=== PATIENT | male | born 1965 | race Caucasian/White ===

== ENCOUNTER → 2023-08-18 | Outpatient (CLI) | payer MEDICARE, MEDICAID, SELFPAY ==
--- NOTE | 2023-08-18 13:51 | CT_ITS ---
STUDY: LOW DOSE CT LUNG CANCER SCREENING REASON FOR EXAM: Male, 58 years old. One pack per day smoker x53 years, current smoker RADIATION DOSAGE (If Supplied By Facility): CTDIvol = ( 2.39 ) mGy, DLP = ( 85.48 ) mGycm TECHNIQUE: No contrast was administered. Low dose technique was utilized (average mAS-38 and kVp 120). 1.25 mm axial source images with a slice interval of 1.25-mm were reconstructed in lung windows. 2.5 mm axial source images with a slice interval of 2.5-mm were reconstructed in lung windows. 5.0 mm axial source images with a slice interval of 5.0-mm were reconstructed in soft tissue windows. COMPARISON: None. FINDINGS: Lung windows show the lungs to be mildly hyperexpanded without significant emphysematous blebs noted. No organized infiltrate, effusion, or suspicious noncalcified mass or nodule. Limited soft tissue windows show normal-appearing thyroid gland. No suspicious adenopathy noted. Peripheral calcifications noted in the thoracic aorta without aneurysm. There are punctate coronary artery calcifications. Bony structures show mild degenerative change. Limited cuts through the upper abdomen do not show a suspicious abnormality. CT/Low Dose CT Lung Screening IMPRESSION: Lung-RADS category 2 - Continue annual screening with LDCT in 12 months. IMPORTANT NOTES FOR USE: ACR Lung-RADS Version 1.1 Assessment Categories Release Date: 2018 Category: Coded 0-4 bases on nodule(s) with highest degree of suspicion. Negative screen is defined as categories 1 and 2; a positive screen is defined as categories 3 and 4. Category 3 and 4A nodules that are unchanged on interval CT should be coded as category 2, and individuals returned to screening in 12 months. Category 4X: Category 3 or 4 nodules with additional imaging findings that increase the suspicion of lung cancer, such as spiculation, GGN that doubles in size in 1 year, enlarged lymph notes, etc. Category Modifiers: S (significant finding unrelated to lung cancer) Electronically Signed: Edy Moody MD at 14:35 EST ,
== END | disposition home or self-care (01) ==
LOC: CT 13:48
PROVIDERS: Referring Provider Nurse Practitioner Family; Visit Provider Nurse Practitioner Family
DX: Z12.2 Encounter for screening for malignant neoplasm of respiratory organs (principal); F17.210 Nicotine dependence, cigarettes, uncomplicated
CPT/HCPCS: 71271

== ENCOUNTER → 2024-09-13 | Outpatient (CLI) | payer MEDICARE, MEDICAID, SELFPAY ==
[2024-09-13 13:03] LABS: Absolute Lymphocyte Count 1.29 X10^3/uL (0.83-4.51); Absolute Neutrophil Count 2.3 X10^3/uL (2.0-7.7); Basophil# 0.02 X10^3/uL; Basophil% 0.5 % (0-1); Eosinophil# 0.05 X10^3/uL; Eosinophils% 1.2 % (0-5); Hematocrit 40.9 % (40-54); Hemoglobin 13.5 g/dL (13.0-16.5); Lymphocyte # 1.29 X10^3/ul (0.83-4.51); Lymphocyte % 31.7 % (19-41); Mean Corpuscular Hgb 30.8 pg (27.0-32.0); Mean Corpuscular Volume 93.4 fL (80-94); Mean Platelet Vol. 10.3 fl (6.2-12.0); Monocyte# 0.41 X10^3/uL; Monocyte% 10.1 % (0-10); NRBC Flagged by Analyzer 0 % (0-5); Neutrophil # 2.29 X10^3/uL (2.7-7.7); Neutrophil % 56.3 % (47-70); POSITIVE COUNT YES; Platelet Count 95 K/mm3 (150-450); RBC Distribution Width CV 12.6 % (11.6-14.6); RBC Distribution Width SD 43.2 fl (35.1-43.9); Red Blood Count 4.38 M/mm3 (4.6-6.2); White Blood Count 4.1 K/mm3 (4.4-11.0)
[2024-09-13 13:04] LABS: Differential Indicated SCAN CRITERIA MET
[2024-09-13 13:28] LABS: Platelet Estimate MOD DEC (ADEQ)
[2024-09-13 13:35] LABS: Hemoglobin A1c 5.6 % (<=5.6)
[2024-09-13 14:37] LABS: ALB/GLOB Ratio 1.9 RATIO (0.9-2.4); AST(SGOT) 14 U/L (<=37); Alanine Aminotransfer ALT/SGPT 10 U/L (<=46); Albumin, Serum 4.1 g/dL (3.4-4.8); Alkaline Phosphatase 104 U/L (40-129); Anion Gap 11 (5-15); BUN 16 mg/dL (4-19); BUN/Creat Ratio 12.3 RATIO (10-20); Calcium 9.3 mg/dL (7.6-11.0); Carbon Dioxide 25.6 mmol/L (22.0-29.0); Chloride 109 mmol/L (96-108); Cholesterol 91 mg/dL (<=200); Creatinine, Serum 1.3 mg/dL (0.8-1.3); EST Glomerular Filtration Rate 65 (>60); Globulin 2.1 g/dL (2.2-4.2); Glucose 81 mg/dL (70-99); High Density Lipoprotein 33 mg/dL; Low Density Lipoprotein Calc. 24 mg/dL; PSA,Total - Annual Screen 0.64 ng/mL (0.02-4.00); Potassium 4.1 mmol/L (3.3-5.1); Protein, Total 6.2 g/dL (5.9-8.4); Sodium Level 146 mmol/L (133-145); Thyroid Stim Hormone (TSH) 0.806 uIU/mL (0.300-4.200); Total Bilirubin 0.22 mg/dL (0.00-1.30); Triglycerides 174 mg/dL; Very Low Density Lipoprotein 35 mg/dL (5-40); Vitamin B12 693 pg/mL (180-914); Vitamin D,25 Hydroxy 47.4 ng/mL (30-100); cholesterol:hdl ratio screen 2.78
== END | disposition home or self-care (01) ==
LOC: VSLAB 09:25
PROVIDERS: PCP Nurse Practitioner Family; Visit Provider Nurse Practitioner Family
DX: Z00.00 Encounter for general adult medical examination without abnormal findings (principal); Z12.5 Encounter for screening for malignant neoplasm of prostate; E03.9 Hypothyroidism, unspecified; E78.5 Hyperlipidemia, unspecified; E53.8 Deficiency of other specified B group vitamins; E55.9 Vitamin D deficiency, unspecified; R73.9 Hyperglycemia, unspecified
CPT/HCPCS: 36415; 80053; 80061; 82306; 82607; 83036; 84153; 84439; 84443; 85025; G0103

== ENCOUNTER → 2024-12-22 | Outpatient (CLI) | payer MEDICARE, MEDICAID, SELFPAY ==
--- NOTE | 2024-12-22 13:37 | CT_ITS ---
PROCEDURE: LOW DOSE CT LUNG SCREENING 12/22/2024 REASON FOR EXAM: TOBACCO USE TECHNIQUE: Low Dose CT Lung screening without contrast. Coronal and Sagittal reconstruction series were provided. One or more dose reduction techniques were used (e.g., Automated exposure control, adjustment of the mA and/or kV according to patient size, use of iterative reconstruction technique). REFERENCE LINK: [facility] Lung-RADS RADIATION DOSE SUMMARY: CTDlvol: 2.4 mGy DLP: 93 mGycm COMPARISON: CT chest on 08/18/2023 FINDINGS: Lymph Nodes:No suspicious lymphadenopathy Heart and Vasculature:Normal heart size. Minimal coronary calcification. Mild aortic atherosclerosis. Lungs and Airways: Trace nonobstructing debris in the proximal airways. Punctate calcified granuloma in the right upper lobe. No suspicious pulmonary nodule. Pleura:No effusion Upper Abdomen:Unremarkable Bones:Degenerative changes of the thoracic spine. CT/Low Dose CT Lung Screening IMPRESSION: Lung-RADS Category: 2 BENIGN (BASED ON IMAGING FEATURES OR INDOLENT BEHAVIOR). RECOMMEND 12-MONTH SCREENING LDCT. Reading Location: [id number]
--- OUTSIDE RECORDS SUMMARY | 2024-12-22 18:47 | XMS RPT_ITS | CCD ---
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 Role Phone Lin Stewart Unavailable Unavailable Lin Stewart Unavailable Unavailable Radhika Yates Unavailable Unavailable Hari Marshall Primary Care Provider [phone] JE NI Attending Unavailable HARI MARSHALL Primary Care Unavailable JE NI Admitting Unavailable JE NI Referring Unavailable HARI MARSHALL Primary Care Unavailable Arden Pedro Unavailable Radhika Yates Unavailable Radhika Yates Primary Care Provider Radhika Yates MD Primary Care Provider Nemes[place] LEAD MILITARY ANALYST-CValentina Primary Care Provider [phone] [place] LEAD MILITARY ANALYST-CValentina Attending Provider Juventino Johnson Primary Care Provider [phone] POORNIMA PRATER Attending Unavailable POORNIMA PRATER Referring Unavailable JUVENTINO JOHNSON Primary Care Unavailable RADHIKA YATES Primary Care Unavailable JE RUDD Attending Unavailable Nemesio VSValentina Hussein Attending Unavailabl e Nemesio VSC, Valentina Primary Care Unavailabl e Nemesio VSCValentina Attending Unavailabl e Nemesio VSC, Valentina Referring Unavailabl e Nemesio VSC, Valentina Primary Care Unavailabl e Medications Current Medications Medication Drug Class(es) Dates Sig (Normalized) Sig (Original) [id number] 200 actuat albuterol 0.09 mg/actuat metered dose inhaler (6 sources) beta2-Adrenergic Agonist Start: 12-04-2020 take 2 puff(s) by inhalation every four hours albuterol 90 mcg/actuation inhaler Inhale 2 puffs every 4 hours if needed. 12/04/2020 Active Start: 12-04-2020 albuterol HFA (PROVENTIL HFA, VENTOLIN HFA) 90 mcg/actuation inhaler Inhale as instructed every 4 hours as needed. 0 12/04/2020 Active Start: 12-04-2020 take 2 puff(s) by in halation every four hours as needed albuterol 90 mcg/inh inhalation aerosol ; 2 puff(s) inhaled every 4 hours, As Needed -for shortness of breath Quantity: 1 Refills: 0 Ordered: 04-Dec-2020 Arden Pedro Start: 04-Dec-2020 Generic Substitution Allowed Comments: For inhalation only.It is very important that you take or use this exactly as directed. Do not skip doses or discontinue unless directed by your doctor.Obtain medical advice before taking any non-prescription drugs as some may affect the action of this medication.Shake well before use. Comment on above: For inhalation only. It is very important that you take or use this exactly as directed. Do not skip doses or discontinue unless directed by your doctor.Obtain medical advice before taking any non-prescription drugs as some may affect the action of this medication.Shake well before use. Inhale as instructed every 4 hours as needed. amoxicillin 875 mg / clavulanate 125 mg oral tablet (1 source) Penicillin-class Antibacterial Start: 03-03-20 End: 03-12-20 take 1 tablet by mouth twice daily at mealtime amoxicillin-clavula salvador 875 mg-125 mg oral tablet ; 1 tab(s) orally 2 times a day Quantity: 20 Refills: 0 Ordered: 02-Mar-2022 Arden Pedro Start: 02-Mar-2022 End: 11-Mar-2022 Generic Substitution Allowed Comments: Finish all this medication unless otherwise directed by prescriber.Take with food or milk. Comment on above: Finish all this medi cation unless otherwise directed by prescriber.Take with food or milk. benztropine mesylate 2 mg oral tablet (5 sources) Anticholinergic, Antihistamine Start: 10-17-19 take 0.5 tablet by mouth twice daily benztropine (Cogentin) 2 mg tablet Take 0.5 tablets (1 mg) by mouth 2 times a day. 10/17/2023 Active benztropine (COG ENTIN) 1 mg tablet Take by mouth q 12 HR. 0 Active take 1 tablet by mouth twice sylvie ly benztropine 1 mg oral tablet ; 1 tab(s) orally 2 times a day Quantity: 0 Refills: 0 Ordered: 14-Feb-2022 Iram Rajput Generic Substitution Allowed Comment on above: Take by mouth q 12 H R. calcium chloride 0.0014 meq/ml / potassium chloride 0.004 meq/ml / sodium chloride 0.103 meq/ml / sodium lactate 0.028 meq/ml injectable solution (1 source) Start: End: take 50 mL intravenously every hour 50 mL/hr, intravenous, Continuous, Starting on Wed10/31/24 at 1100, For 1 day cholecalciferol 0.05 mg oral tablet (4 sources) Vitamin D Start: End: take 1 tablet by mouth once daily cholecalciferol (Vitamin D-3) 50 MCG (2000 UT) tablet Take 1 tablet (2,000 Units) by mouth once daily. 08/19/2024 Active docusate sodium 100 mg oral capsule (6 sources) Start: take 1 capsule by mouth twice daily docusate sodium (Colace) 100 mg capsule Take 1 capsule (100 mg) by mouth 2 times a day. 08/19/2024 Active Docusate Sodium 250 mg capsule Take by mouth. 0 Active Comment on above: Take by mouth. haloperidol 2 mg oral tablet (9 sources) Typical Antipsychotic Start: take 1 tablet by mouth once daily haloperidol (Haldol) 2 mg tablet Take 1 tablet (2 mg) by mouth once daily. WITH 5 MG 10/28/2023 Active Start: 10-15-2023 haloperidol de canoate (Haldol Decanoate) 100 mg/mL injection Inject 1 mL (100 mg) into the muscle every 28 (twenty-eight) days. 10/15/2023 Active take 1 tablet by mabel th once daily haloperidol (Haldol) 5 mg tablet Take 1 tablet (5 mg) by mouth once daily. Active Comment on above: Take by mouth. levothyroxine sodium 0.15 mg oral tablet (5 sources) l-Thyroxine take 1 tablet by mouth in the morning levothyroxine (Synthroid, Levoxyl) 150 mcg tablet Take 1 tablet (150 mcg) by mouth early in the morning.. Active take 1 tablet by mouth once jose y levothyroxine 150 mcg (0.15 mg) oral tablet ; 1 tab(s) orally once a day Quantity: 0 Refills: 0 Ordered: 14-Feb-2022 Regulo Iram Generic Substitution Allowed Comment on above: Take by mouth. Multivitamin preparation (3 sources) take 1 tablet by mouth once daily Vitamin B-100 oral tablet ; 1 tab(s) orally once a day Quantity: 0 Refills: 0 Ordered: 29-Mar-2020 Feliciano Briseno Status: Other Generic Substitution Allowed take 1 tablet by mouth once jose y Vitamin B-100 oral tablet ; 1 tab(s) orally once a day Quantity: 0 Refills: 0 Ordered: 29-Mar-2020 Feliciano Briseno Generic Substitution Allowed OLANZapine 20 mg oral tablet (8 sources) Atypical Antipsychotic take 1 tablet by mouth once daily at bedtime OLANZapine (ZyPREXA) 20 mg tablet Take 1 tablet (20 mg) by mouth once daily at bedtime. Active take 1 tablet by mabel th once daily at bedtime OLANZapine ; 1 tab(s) orally once a day (at bedtime) Quantity: 0 Refills: 0 Ordered: 29-Mar-2020 Feliciano Briseno Status: Other Generic Substitution Allowed take 1 tablet by mabel th once daily at bedtime OLANZapine ; 1 tab(s) orally once a day (at bedtime) Quantity: 0 Refills: 0 Ordered: 29-Mar-2020 Feliciano Briseno Generic Substitution Allowed Comment on above: Take by mouth. microencapsulated potassium chloride 10 meq extended release oral tablet (2 sources) Start: take 1 tablet by mouth once daily potassium chloride CR 10 mEq ER tablet Take 1 tablet (10 mEq) by mouth once daily. 10/17/2023 Active 24 hr propranolol hydrochloride 80 mg extended release oral capsule (5 sources) beta-Adrenergic Derek take 1 capsule by mouth once daily propranolol LA (Inderal LA) 80 mg 24 hr capsule Take 1 capsule (80 mg) by mouth once daily. Active take 1 capsule by mo [facility] every twenty-four hours propranolol ER (INDERAL LA) 80 mg 24 hr capsule Take by mouth. 0 Active Comment on above: Take by mouth. rosuvastatin calcium 5 mg oral tablet (5 sources) HMG-CoA Reductase Inhibitor take 1 tablet by mouth once daily rosuvastatin (Crestor) 5 mg tablet Take 1 tablet (5 mg) by mouth once daily. Active Comment on above: Take by mouth. terbinafine hydrochloride 10 mg/ml topical cream (2 sources) Allylamine Antifungal Desenex Maximum 1% topical cream ; Apply topically to affected area 2 times a day Quantity: 0 Refills: 0 Ordered: 14-Feb-2022 Iram Rajput Generic Substitution Allowed 30 actuat umeclidinium 0.0625 mg/actuat / vilanterol 0.025 mg/actuat dry powder inhaler (2 sources) Anticholinergic, beta2-Adrenergic Agonist Start: 10-13-19 24 take 1 puff(s) by inhalation once daily Anoro Ellipta 62.5-25 mcg/actuation blister with device Inhale 1 puff once daily. 10/13/2023 Active vitamin b12 1 mg oral tablet (4 sources) Vitamin B12 take 1 tablet by mouth once daily cyanocobalamin (Vitamin B-12) 1,000 mcg tablet Take 1 tablet (1,000 mcg) by mouth once daily. Active Completed/Discontinued Medications Medication Drug Class(es) Dates Sig (Normalized) Sig (Original) 1 ml fentaNYL 0.05 mg/ml injection (1 source) Opioid Agonist Start: 10-31-2024 End: 10-31-2024 intravenous, As needed, Starting on Wed10/31/24 at 1138, Intraprocedure ibuprofen 600 mg oral tablet (3 sources) Nonsteroidal Anti-inflammatory Drug Start: 03-29-2020 End: 04-07-2020 take 1 tablet by mouth three times daily at mealtime IBU 600 mg oral tablet ; 1 tab(s) orally 3 times a day Quantity: 30 Refills: 0 Ordered: 29-Mar-2020 Cedrick Reece Start: 29-Mar-2020 End: 07-Apr-2020 Status: Other Generic Substitution Allowed Comments: Do not take this drug if you are .It is very important that you take or use this exactly as directed. Do not skip doses or discontinue unless directed by your doctor.May cause drowsiness or dizziness.Obtain medical advice before taking any non-prescription drugs as some may affect the action of this medication.Take with food or milk. Comment on above: Do not take this drug if you are pregnan t.It is very important that you take or use this exactly as directed. Do not skip doses or discontinue unless directed by your doctor.May cause drowsiness or dizziness.Obtain medical advice before taking any non-prescription drugs as some may affect the action of this medication.Take with food or milk. 2 ml midazolam 5 mg/ml injection (1 source) Benzodiazepine Start: 10-31-2024 End: 10-31-2024 intravenous, Administer over 5 Minutes, As needed, Starting on Wed10/31/24 at 1138, Intraprocedure predniSONE 20 mg oral tablet (3 sources) Start: 12-04-2020 End: 12-08-2020 take 2 tablets by mouth once daily at mealtime predniSONE 20 mg oral tablet ; 2 tab(s) orally once a day Quantity: 10 Refills: 0 Ordered: 04-Dec-2020 Arden Pedro Start: 04-Dec-2020 End: 08-Dec-2020 Status: Other Generic Substitution Allowed Comments: It is very important that you take or use this exactly as directed. Do not skip doses or discontinue unless directed by your doctor.Obtain medical advice before taking any non-prescription drugs as some may affect the action of this medication.Take with food or milk. Comment on above: It is very important that you take or us e this exactly as directed. Do not skip doses or discontinue unless directed by your doctor.Obtain medical advice before taking any non-prescription drugs as some may affect the action of this medication.Take with food or milk. tiotropium 0.018 mg inhalation powder (3 sources) Anticholinergic tiotropium (SPIRIVA) 18 mcg inhalation capsule Inhale as instructed. 0 Active take 1 capsule by inhalation onc e daily Spiriva HandiHaler 18 mcg inhalation capsule ; 1 cap(s) inhaled once a day Quantity: 0 Refills: 0 Ordered: 14-Feb-2022 Iram Rajput Generic Substitution Allowed Comment on above: Inhale as instructed . Vitamin B Complex (1 source) vitamin b comple x tab Take by mouth. 0 Active Comment on above: Take by mouth. Problems Problem Classification Problem Date Documented Da te Episodic/Chronic Anal and rectal conditions (2 sources) Perianal abscess; Translations: [Abscess of anal and rectal regions] 08-16-2022 Episodic Asthma (4 sources) Asthma; Translations: [Asthma, unspecified type, unspecified] 12-04-2020 Chronic Comment on above: ASTHMA Blindness and vision defects (3 sources) Presbyopia; Translations: [Presbyopia] Episodic Cataract (1 source) Nuclear senile cataract; Translations: [Age-related nuclear cataract, bilateral] Chronic Gastrointestinal hemorrhage (2 sources) Rectal hemorrhage; Translations: [Hemorrhage of rectum and anus] 03-02-2022 Episodic Joint disorders and dislocations; trauma-related (1 source) Closed traumatic dislocation of interphalangeal joint of finger; Translations: [Closed dislocation of interphalangeal joint of right little finger] Episodic Nonspecific chest pain (4 sources) Chest pain; Translations: [Chest pain, unspecified] 02-14-2022 Episodic Comment on above: CHEST PAIN Other eye disorders (1 source) Alternating exotropia; 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 Other gastrointestinal disorders (3 sources) Constipation; Translations: [Constipation, unspecified] 03-03-2022 Episodic Other gastrointestinal disorders (2 sources) Other constipation; Translations: [Other constipation] Onset: 09-02-2024 Episodic Other lower respiratory disease (1 source) Dyspnea at rest; Translations: [Shortness of breath] Onset: 12-04-2020 12-04-2020 Episodic Other screening for suspected conditions (not mental disorders or infectious disease) (3 sources) Patient encounter status; Translations: [Encounter for screening for malignant neoplasm of colon] Onset: 10-31-2024 10-31-2024 Episodic Substance-related disorders (1 source) Nicotine dependence, cigarettes, uncomplicated; Translations: [Nicotine dependence, cigarettes, uncomplicated] Onset: 11-20-2024 Chronic Unclassified (1 source) Shortness of breath at rest 12-04-2020 Unclassified (2 sources) RECTAL BLEED 03-02-2022 Comment on above: RECTAL BLEED Unclassified (1 source) Patient encounter status 10-31-2024 Results Test Name Value Interpretation Reference Range Facility COLONOSCOPYon 10-31-2024 Colonoscopy Table formatting fro m the original result was not included. Impression 7 mm She Isp polyp in the mid rectum; performed hot snare removal Findings 7 mm sessile She Isp polyp in the mid rectum; no bleeding was observed; performed hot snare with complete en bloc removal and retrieved specimen Recommendation Follow up with PCP Repeat colonoscopy in 5 years, due: 10/30/2029 Indication Colon cancer screening Staff Staff Role No Staff Documented Medications midazolam PF (Versed) injection 2.5 mg fentaNYL PF (Sublimaze) injection 25 mcg (Totals for administrations occurring from 1133 to 1158 on 10/31/24) Preprocedure A history and physical has been performed, and patient medication allergies have been reviewed. The patient's tolerance of previous anesthesia has been reviewed. The risks and benefits of the procedure and the sedation options and risks were discussed with the patient and CareGiver. All questions were answered and informed consent obtained. Details of the Procedure The patient underwent moderate sedation, which was administered by the procedural nurse. The patient's blood pressure, ECG, ETCO2, heart rate, level of consciousness, oxygen and respirations were monitored throughout the procedure. A digital rectal exam was performed. The scope was introduced through the anus and advanced to the terminal ileum. Retroflexion was performed in the rectum. The quality of bowel preparation was evaluated using the Jenkins Bowel Preparation Scale with scores of: right colon = 2, transverse colon = 2, left colon = 2. The total BBPS score was 6. Bowel prep was adequate. The patient experienced no blood loss. The procedure was not difficult. The patient tolerated the procedure well. There were no apparent adverse events. Events Procedure Events Event Event Time ENDO SCOPE IN TIME 10/31/2024 11:41 AM ENDO CECUM REACHED 10/31/2024 11:48 AM ENDO SCOPE OUT TIME 10/31/2024 11:56 AM Specimens ID Type Source Tests Collected by Time 1 : RECTAL POLYP Tissue RECTUM POLYPECTOMY SURGICAL PATHOLOGY EXAM Julio Reyes RN 10/31/2024 1154 Procedure Location [facility] [address] [place] [phone] Referring Provider Poornima Prater DO Procedure Provider Poornima Prater DO Table formatting from the original result was not included. Impression 7 mm She Isp polyp in the mid rectum; performed hot snare removal Findings 7 mm sessile She Isp polyp in the mid rectum; no bleeding was observed; performed hot snare with complete en bloc removal and retrieved specimen Recommendation Follow up with PCP Repeat colonoscopy in 5 years, due: 10/30/2029 Indication Colon cancer screening Staff Staff Role No Staff Documented Medications midazolam PF (Versed) injection 2.5 mg fentaNYL PF (Sublimaze) injection 25 mcg (Totals for administrations occurring from 1133 to 1158 on 10/31/24) Preprocedure A history and physical has been performed, and patient medication allergies have been reviewed. The patient's tolerance of previous anesthesia has been reviewed. The risks and benefits of the procedure and the sedation options and risks were discussed with the patient and CareGiver . All questions were answered and informed consent obtained. Details of the Procedure The patient underwent moderate sedation, which was administered by the procedural nurse. The patient's blood pressure, ECG, ETCO2, heart rate, level of consciousness, oxygen and respirations were monitored throughout the procedure. A digital rectal exam was performed. The scope was introduced through the anus and advanced to the terminal ileum. Retroflexion was performed in the rectum. The quality of bowel preparation was evaluated using the Jenkins Bowel Preparation Scale with scores of: right colon = 2, transverse colon = 2, left colon = 2. The total BBPS score was 6. Bowel prep was adequate. The patient experienced no blood loss. The procedure was not difficult. The patient tolerated the procedure well. There were no apparent adverse events. Events Procedure Events Event Event Time ENDO SCOPE IN TIME 10/31/2024 11:41 AM ENDO CECUM REACHED 10/31/2024 11:48 AM ENDO SCOPE OUT TIME 10/31/2024 11:56 AM Specimens ID Type Source Tests Collected by Time 1 : RECTAL POLYP Tissue RECTUM POLYPECTOMY SURGICAL PATHOLOGY EXAM Julio Reyes RN 10/31/2024 1154 Procedure Location [facility] [address] [place] [phone] Referring Provider Poornima Prater DO Procedure Provider Poornima Prater DO [facility] Comment on above: Order Comment: October 31 Colonoscopy studyon 11-01-19 Addendum by Poornima Prater DO on 10/31/2024 12:12 PM EDT Table formatting from the original result was not included. Impression 7 mm She Isp polyp in the mid rectum; performed hot snare removal Findings 7 mm sessile She Isp polyp in the mid rectum; no bleeding was observed; performed hot snare with complete en bloc removal and retrieved specimen Recommendation Follow up with PCP Repeat colonoscopy in 5 years, due: 10/30/2029 Indication Colon cancer screening Staff Staff Role No Staff Documented Medications midazolam PF (Versed) injection 2.5 mg fentaNYL PF (Sublimaze) injection 25 mcg (Totals for administrations occurring from 1133 to 1158 on 10/31/24) Preprocedure A history and physical has been performed, and patient medication allergies have been reviewed. The patient's tolerance of previous anesthesia has been reviewed. The risks and benefits of the procedure and the sedation options and risks were discussed with the patient and CareGiver. All questions were answered and informed consent obtained. Details of the Procedure The patient underwent moderate sedation, which was administered by the procedural nurse. The patient's blood pressure, ECG, ETCO2, heart rate, level of consciousness, oxygen and respirations were monitored throughout the procedure. A digital rectal exam was performed. The scope was introduced through the anus and advanced to the terminal ileum. Retroflexion was performed in the rectum. The quality of bowel preparation was evaluated using the Jenkins Bowel Preparation Scale with scores of: right colon = 2, transverse colon = 2, left colon = 2. The total BBPS score was 6. Bowel prep was adequate. The patient experienced no blood loss. The procedure was not difficult. The patient tolerated the procedure well. There were no apparent adverse events. Events Procedure Events Event Event Time ENDO SCOPE IN TIME 10/31/2024 11:41 AM ENDO CECUM REACHED 10/31/2024 11:48 AM ENDO SCOPE OUT TIME 10/31/2024 11:56 AM Specimens ID Type Source Tests Collected by Time 1 : RECTAL POLYP Tissue RECTUM POLYPECTOMY SURGICAL PATHOLOGY EXAM Julio Reyes RN 10/31/2024 1154 Procedure Location [facility] [address] [place] [phone] Referring Provider Poornima Prater DO Procedure Provider Poornima Prater DO [facility] Work Phone: [facility] Work Phone: Radiology Study observation (narrative) [facility] Work Phone: Surgical pathology studyon 0 10-31-2024 Surgical pathology study Pathology report.total SEE COMMENT Surgical Pathology Case: [id number] Authorizing Provider: Poornima Prater DO Collected: 10/31/2024 1154 Ordering Location: [facility] Received: 10/31/2024 1527 Center [place] Pathologist: Mingo Rocha MD Specimen: RECTUM POLYPECTOMY, RECTAL POLYP Path report.final diagnosis SEE COMMENT A. POLYP (RECTUM), EXCISIONAL BIOPSY: - HYPERPLASTIC POLYP. at 0907 EDT Laboratory comment By the signature on this report, the individual or group listed as making the Final Interpretation/Diagnosis certifies that they have reviewed this case. Path report.relevant Hx Z12.11 - Colon cancer screening [ICD-10-CM] Path report.gross observation SEE COMMENT A: Received in formalin, labeled with the patient's name and hospital number and rectal polyp, is one fragment of marquis, soft tissue measuring 0.6 x 0.5 x 0.3 cm. The specimen is submitted in toto in one cassette. BMG Path report.microscopic observation Microscopic slides examined. Normal [facility] Absolute neutrophil countOrd ered By: [facility] Valentinaanton Herr on 09-13-2024 Neutrophils (Bld) [#/Vol] 2.3 10*3/uL 2.0-7.7 [facility] BUN/creatinine ratioOrdered By: [facility] on 09-13-2024 Urea nitrogen/Creatinine [Mass ratio] 12.3 mg/mg 10-20 [facility] Basophil percentageOrdered B y: [facility] Nem[place]io on 09-13-2024 Basophils/100 WBC (Bld) 0.5 % 0-1 [facility] Bilirubin, totalOrdered By: [facility] Nemesio on 09-13-2024 Bilirubin [Mass/Vol] 0.22 mg/dL 0.00-1.30 [facility] CBC W/Diff, Automatedon 08-20 PLT EST MOD DEC Normal ADEQ [facility] Comment on above: Performed By: #### L 501.9985, L501.9520, L506.0400, L501.9910, L503.0106, L500.4100, L100.0100, L500.4050, L506.1001 #### [facility] [address] [place], [place], [id number] Calculated very low density lipoprotein (VLDL) cholesterol measurementOrdered By: [facility] Valentina Nemesio on 09-13-2024 VLDL Cholesterol 35 mg/dL 5-40 [facility] Carbon dioxide measurementOr dered By: [facility] Valentina Nemesio on 09-13-2024 CO2 [Moles/Vol] 25.6 mmol/L 22.0-29.0 [facility] Chloride measurementOrdered By: [facility] Valentina Nemesio on 09-13-2024 Chloride [Moles/Vol] 109 mmol/L High 96-108 [facility] Comprehensive Metabolic Prof ilon 09-13-2024 Albumin [Mass/Vol] 4.1 g/dL Normal 3.4-4.8 [facility] Comment on above: Performed By: #### L 501.9985, L501.9520, L506.0400, L501.9910, L503.0106, L500.4100, L100.0100, L500.4050, L506.1001 #### [facility] [address] [place], [place], [id number] Albumin/Globulin [Mass ratio] 1.9 {ratio} Normal 0.9-2.4 [facility] Comment on above: Performed By: #### L 501.9985, L501.9520, L506.0400, L501.9910, L503.0106, L500.4100, L100.0100, L500.4050, L506.1001 #### [facility] [address] [place], [address] ALK PHOS 104 U/L Normal 40-129 [facility] Comment on above: Performed By: #### L 501.9985, L501.9520, L506.0400, L501.9910, L503.0106, L500.4100, L100.0100, L500.4050, L506.1001 #### [facility] [address] [place], [address] ALT [Catalytic activity/Vol] 10 U/L Normal <=46 [facility] Comment on above: Performed By: #### L 501.9985, L501.9520, L506.0400, L501.9910, L503.0106, L500.4100, L100.0100, L500.4050, L506.1001 #### [facility] [address] [place], [place], [id number] (812) Anion gap [Moles/Vol] 11 mmol/L Normal 5-15 [facility] Comment on above: Performed By: #### L 501.9985, L501.9520, L506.0400, L501.9910, L503.0106, L500.4100, L100.0100, L500.4050, L506.1001 #### [facility] [address] [place], [place], [phone] (543) AST [Catalytic activity/Vol] 14 U/L Normal <=37 [facility] Comment on above: Performed By: #### L 501.9985, L501.9520, L506.0400, L501.9910, L503.0106, L500.4100, L100.0100, L500.4050, L506.1001 #### [facility] [address] [place], [place], [id number] Bilirubin [Mass/Vol] 0.22 mg/dL Normal 0.00-1.30 [facility] Comment on above: Performed By: #### L 501.9985, L501.9520, L506.0400, L501.9910, L503.0106, L500.4100, L100.0100, L500.4050, L506.1001 #### [facility] [address] [place], [place], [id number] (649) BUN/CRE 12.3 RATIO Normal 10-20 [facility] Comment on above: Performed By: #### L 501.9985, L501.9520, L506.0400, L501.9910, L503.0106, L500.4100, L100.0100, L500.4050, L506.1001 #### [facility] [address] [place], [address] Calcium [Mass/Vol] 9.3 mg/dL Normal 7.6-11.0 [facility] Comment on above: Performed By: #### L 501.9985, L501.9520, L506.0400, L501.9910, L503.0106, L500.4100, L100.0100, L500.4050, L506.1001 #### [facility] [address] [place], [address] Chloride [Moles/Vol] 109 mmol/L High 96-108 [facility] Comment on above: Performed By: #### L 501.9985, L501.9520, L506.0400, L501.9910, L503.0106, L500.4100, L100.0100, L500.4050, L506.1001 #### [facility] [address] [place], [address] CO2 [Moles/Vol] 25.6 mmol/L Normal 22.0-29.0 [facility] Comment on above: Performed By: #### L 501.9985, L501.9520, L506.0400, L501.9910, L503.0106, L500.4100, L100.0100, L500.4050, L506.1001 #### [facility] [address] [place], [address] Creatinine [Mass/Vol] 1.3 mg/dL Normal 0.8-1.3 [facility] Comment on above: Performed By: #### L 501.9985, L501.9520, L506.0400, L501.9910, L503.0106, L500.4100, L100.0100, L500.4050, L506.1001 #### [facility] [address] [place], [address] GFR/1.73 sq M.predicted among non-blacks MDRD (S/P/Bld) [Vol rate/Area] 65 mL/min/{1.73_m2} Normal >60 [facility] Comment on above: Result Comment: mL/m in/1.73m2 CKD-EPI Creatinine Equation (2020) Performed By: #### L 501.9985, L501.9520, L506.0400, L501.9910, L503.0106, L500.4100, L100.0100, L500.4050, L506.1001 #### [facility] [address] [place], [address] Globulin (S) [Mass/Vol] 2.1 g/dL Low 2.2-4.2 [facility] Comment on above: Performed By: #### L 501.9985, L501.9520, L506.0400, L501.9910, L503.0106, L500.4100, L100.0100, L500.4050, L506.1001 #### [facility] [address] [place], [address] Glucose [Mass/Vol] 81 mg/dL Normal 70-99 [facility] Comment on above: Performed By: #### L 501.9985, L501.9520, L506.0400, L501.9910, L503.0106, L500.4100, L100.0100, L500.4050, L506.1001 #### [facility] [address] [place], [address] Potassium [Moles/Vol] 4.1 mmol/L Normal 3.3-5.1 [facility] Comment on above: Performed By: #### L 501.9985, L501.9520, L506.0400, L501.9910, L503.0106, L500.4100, L100.0100, L500.4050, L506.1001 #### [facility] [address] [place], [address] Sodium [Moles/Vol] 146 mmol/L High 133-145 [facility] Comment on above: Performed By: #### L 501.9985, L501.9520, L506.0400, L501.9910, L503.0106, L500.4100, L100.0100, L500.4050, L506.1001 #### [facility] [address] [place], [address] T PROT 6.2 g/dL Normal 5.9-8.4 [facility] Comment on above: Performed By: #### L 501.9985, L501.9520, L506.0400, L501.9910, L503.0106, L500.4100, L100.0100, L500.4050, L506.1001 #### [facility] [address] [place], [address] Urea nitrogen [Mass/Vol] 16 mg/dL Normal 4-19 [facility] Comment on above: Performed By: #### L 501.9985, L501.9520, L506.0400, L501.9910, L503.0106, L500.4100, L100.0100, L500.4050, L506.1001 #### [facility] [address] [place], [address] Eosinophil percentageOrdered By: [facility] Valentina Herr on 09-13-2024 Eosinophils/100 WBC (Bld) 1.2 % 0-5 [facility] Erythrocyte distribution wid th ratioOrdered By: [facility] Valentina Herr on 09-13-2024 Erythrocyte distribution width (RBC) [Ratio] 12.6 % 11.6-14.6 [facility] Erythrocyte distribution wid th standard deviationOrdered By: [facility] Valentina Nemesio on 09-13-2024 Erythrocyte distribution width (RBC) [Entitic vol] 43.2 fL 35.1-43.9 [facility] GFR/1.73 sq M.predicted barbara g non-blacks MDRD (S/P/Bld) [Vol rate/Area]Ordered By: [facility] Valentina Herr on 09-13-2024 Estimated GFR (MDRD) Non-Af Amer 65 >60 [facility] Comment on above: mL/min/1.73m2 CKD-EP I Creatinine Equation (2020) Hematocrit Auto (Bld) [Volum e fraction][facility]: [facility] 09-13-2024 Hematocrit (Bld) [Volume fraction] 40.9 % 40-54 [facility] Hemoglobin A1con 09-13-2024 HbA1c (Bld) [Mass fraction] 5.6 % Low <=5.6 [facility] Comment on above: Performed By: #### L 501.9985, L501.9520, L506.0400, L501.9910, L503.0106, L500.4100, L100.0100, L500.4050, L506.1001 #### [facility] [address] [place], [place], [phone] Hemoglobin A1c percentageOrd ered By: [facility] on 09-13-2024 HbA1c (Bld) [Mass fraction] 5.6 % Low >5.7 [facility] Hemoglobin measurementOrdere d By: [facility] Valentina Herr on 09-13-2024 Hemoglobin (Bld) [Mass/Vol] 13.5 g/dL 13.0-16.5 [facility] Immature granulocytes/100 WB C Auto (Bld)Ordered By: [facility] on 09-13-2024 Immature granulocytes/100 WBC (Bld) 0.200 % 0.0-0.9 [facility] Comment on above: IG% - Immature Granu locytes (promyelocytes, myelocytes and metamyelocytes) > 1% indicates that a LEFT SHIFT is Present. L503.0106on 09-13-2024 Cobalamin (Vitamin B12) [Mass/Vol] 693 pg/mL Normal 180-914 [facility] Comment on above: Performed By: #### L 501.9985, L501.9520, L506.0400, L501.9910, L503.0106, L500.4100, L100.0100, L500.4050, L506.1001 #### [facility] [address] [place], [place], [id number] L506.1001on 09-13-2024 Vitamin D 25-OH 47.4 ng/mL Normal 30-100 [facility] Comment on above: Result Comment: Paige min D Status Deficiency: <20 ng/mL (50nmol/L) Insufficiency: 20-30 ng/mL (50-75 nmol/L) Sufficiency: 30-100 ng/mL (75-250 nmol/L) Toxicity: >100 ng/mL (>250 nmol/L) Performed By: #### L 501.9985, L501.9520, L506.0400, L501.9910, L503.0106, L500.4100, L100.0100, L500.4050, L506.1001 #### [facility] [address] [place], [place], [id number] LDL calc ser/plasOrdered By: [facility] Valentina Herr on 09-13-2024 LDL Cholesterol, Calculated 24 mg/dL [facility] Comment on above: Qqonzbftrt=433-350 m g/dL & Higher Xusf=869 mg/dL or greater Laboratory - Chemistry and C hemistry - challengeOrdered By: [facility] Valentina Herr on 09-13-2024 AST [Catalytic activity/Vol] 14 U/L <38 [facility] Lipid Profileon 09-13-2024 CHOL:HDL 2.78 Normal [facility] Comment on above: Performed By: #### L 501.9985, L501.9520, L506.0400, L501.9910, L503.0106, L500.4100, L100.0100, L500.4050, L506.1001 #### [facility] [address] [place], [address] Cholesterol [Mass/Vol] 91 mg/dL Normal <=200 [facility] Comment on above: Result Comment: Chol esterol level, Desirable <200 mg/dL Borderline high cholesterol 200-239 mg/dL High cholesterol >=240 mg/dL Recommendations of the NCEP Adult Treatment Panel for the following risk-cutoff thresholds for the [place] population. Performed By: #### L 501.9985, L501.9520, L506.0400, L501.9910, L503.0106, L500.4100, L100.0100, L500.4050, L506.1001 #### [facility] [address] [place], [address] Cholesterol in HDL [Mass/Vol] 33 mg/dL Low [facility] Comment on above: Result Comment: Lisa onal Cholesterol Education Program (NCEP) guidelines: <40 mg/dL: Low HDL-cholesterol (major risk factor for CHD) >= 60 mg/dL: High HDL-cholesterol (negative risk factor for CHD) HDL-cholesterol is affected by a number of factors, e.g. smoking, exercise, hormones, sex and age. Performed By: #### L 501.9985, L501.9520, L506.0400, L501.9910, L503.0106, L500.4100, L100.0100, L500.4050, L506.1001 #### [facility] [address] [place], [address] Cholesterol in LDL [Mass/Vol] 24 mg/dL Normal [facility] Comment on above: Result Comment: Bord rtpuds=857-453 mg/dL Higher Lnac=011 mg/dL or greater Performed By: #### L 501.9985, L501.9520, L506.0400, L501.9910, L503.0106, L500.4100, L100.0100, L500.4050, L506.1001 #### [facility] [address] [place], [place], [id number] Cholesterol in VLDL [Mass/Vol] 35 mg/dL Normal 5-40 [facility] Comment on above: Performed By: #### L 501.9985, L501.9520, L506.0400, L501.9910, L503.0106, L500.4100, L100.0100, L500.4050, L506.1001 #### [facility] [address] [place], [address] Triglyceride [Mass/Vol] 174 mg/dL Normal [facility] Comment on above: Result Comment: The drugs N-Acetylcysteine and Metamizole may falsely depress this assay. Normal range: <150 mg/dL Borderline High: 150-199 mg/dL High: 200-499 mg/dL Very High: >500 mg/dL Performed By: #### L 501.9985, L501.9520, L506.0400, L501.9910, L503.0106, L500.4100, L100.0100, L500.4050, L506.1001 #### [facility] [address] [place], [place], [id number] Lymphocytes Auto (Unsp spec) [#/Vol]Ordered By: [facility] Valentina Herr on 09-13-2024 Lymphocytes (Bld) [#/Vol] 1.29 10*3/uL 0.83-4.51 [facility] Lymphocytes/100 WBC Auto (Un sp spec)Ordered By: [facility] Valentina Herr on 09-13-2024 Lymphocytes/100 WBC (Bld) 31.7 % 19-41 [facility] MCV (mean corpuscular volume ) determinationOrdered By: [facility] Valentina Herr on 09-13-2024 MCV (RBC) [Entitic vol] 93.4 fL 80-94 [facility] Mean corpuscular hemoglobin (MCH) determinationOrdered By: [facility] Valentina Herr on 09-13-2024 MCH (RBC) [Entitic mass] 30.8 pg 27.0-32.0 [facility] Mean corpuscular hemoglobin concentration (MCHC) determinationOrdered By: [facility] Valentina Herr on 09-13-2024 MCHC (RBC) [Mass/Vol] 33.0 g/dL 32-36 [facility] Mean platelet volume determi nationOrdered By: [facility] Valentina Hrer on 09-13-2024 Platelet mean volume (Bld) [Entitic vol] 10.3 fL 6.2-12.0 [facility] Monocyte percentageOrdered B y: [facility] Valentinaanton Herr on 09-13-2024 Monocytes/100 WBC (Bld) 10.1 % High 0-10 [facility] Neutrophil percentageOrdered By: [facility] Nemesio on 09-13-2024 Neutrophils/100 WBC (Bld) 56.3 % 47-70 [facility] Nucleated red blood cell per centageOrdered By: [facility] on 09-13-2024 Nucleated RBC/100 WBC (Bld) [Ratio] 0 % 0-5 [facility] PSA, total screeningOrdered By: [facility] Valentina Herr on 09-13-2024 Prostate Specific Antigen Screen 0.64 ng/mL 0.02-4.00 [facility] Comment on above: This test was perfor med using the [employer] tPSA method. Measured values of a patient sample can vary depending on the testing procedure used. PSA values determined on patient samples by different testing procedures cannot be used interchangeably. If there is a change in PSA assays while monitoring therapy, sequential testing should be performed to confirm baseline values. PSA,Total - Annual Screenon 09-13-2024 PSA,TOT SCREEN 0.64 ng/mL Normal 0.02-4.00 [facility] Comment on above: Result Comment: This test was performed using the [employer] tPSA method. Measured values of a patient??sample can vary depending on the testing procedure used. PSA values determined on patient samples by different testing procedures cannot be used interchangeably. If there is a change in PSA assays while monitoring therapy, sequential testing should be performed to confirm baseline values. Performed By: #### L 501.9985, L501.9520, L506.0400, L501.9910, L503.0106, L500.4100, L100.0100, L500.4050, L506.1001 #### [facility] [address] [place], [place], [id number] Platelet countOrdered By: NGA Herr on 09-13-2024 Platelets (Bld) [#/Vol] 95 10*3/uL Low 150-450 [facility] Platelets LM Ql (Bld)Ordered By: [facility] Valentina Herr on 09-13-2024 Platelet Estimate MOD DEC ADEQ [facility] RBC Auto (Bld) [#/Vol]Ordere d By: [facility] Valentina Herr on 09-13-2024 RBC (Bld) [#/Vol] 4.38 10*6/uL Low 4.6-6.2 [facility] Screening total cholesterol/ high density lipoprotein (HDL) cholesterol ratioOrdered By: Keenan Herr on 09-13-2024 Cholesterol.total/Cho lesterol in HDL [Mass ratio] 2.78 {ratio} [facility] Serum creatinine measurement (mass/volume)Ordered By: Keenan Herr on 09-13-2024 Creatinine [Mass/Vol] 1.3 mg/dL 0.70-1.20 [facility] Serum globulin measurementOr dered By: [facility] Valentina Herr on 09-13-2024 Globulin (S) [Mass/Vol] 2.1 g/dL Low 2.2-4.2 [facility] Serum glucose measurement (m ass/volume)Ordered By: [facility] Valentina Herr on 09-13-2024 Glucose [Mass/Vol] 81 mg/dL 70-99 [facility] Serum or plasma alanine ching otransferase (ALT) measurementOrdered By: [facility] Valentina Herr on 09-13-2024 ALT [Catalytic activity/Vol] 10 U/L <47 [facility] Serum or plasma albumin laurie urement (mass/volume)Ordered By: [facility] Valentina Herr on 09-13-2024 Albumin [Mass/Vol] 4.1 g/dL 3.4-4.8 [facility] Serum or plasma albumin/glob ulin mass ratioOrdered By: MARGARETTE Herr on 09-13-2024 Albumin/Globulin [Mass ratio] 1.9 {ratio} 0.9-2.4 [facility] Serum or plasma alkaline richard sphatase measurementOrdered By: [facility] Valentina Herr on 09-13-2024 ALP [Catalytic activity/Vol] 104 U/L 40-129 [facility] Serum or plasma anion gap de termination (moles/volume)Ordered By: [facility] Valentina Herr on 09-13-2024 Anion gap [Moles/Vol] 11 mmol/L 5-15 [facility] Serum or plasma calcium laurie urement (mass/volume)Ordered By: [facility] Valentina Herr on 09-13-2024 Calcium [Mass/Vol] 9.3 mg/dL 7.6-11.0 [facility] Serum or plasma cholesterol in HDL measurement (mass/volume)Ordered By: [facility] Valentina Herr on 09-13-2024 Cholesterol in HDL [Mass/Vol] 33 mg/dL Low >40 [facility] Comment on above: National Cholesterol Education Program (NCEP) guidelines:<40 mg/dL: Low HDL-cholesterol (major risk factor for CHD)>= 60 mg/dL: High HDL-cholesterol (negative risk factor for CHD)HDL-cholesterol is affected by a number of factors, e.g. smoking, exercise, hormones, sex and age. Serum or plasma cholesterol measurement (mass/volume)Ordered By: [facility] Valentina Herr on 09-13-2024 Cholesterol [Mass/Vol] 91 mg/dL <201 [facility] Comment on above: Cholesterol level, D esirable <200 mg/dLBorderline high cholesterol 200-239 mg/dLHigh cholesterol >=240 mg/dLRecommendations of the NCEP Adult Treatment Panel for the following risk-cutoff thresholds for the [place] population. Serum or plasma potassium me asurementOrdered By: [facility] Valentina Herr on 09-13-2024 Potassium [Moles/Vol] 4.1 mmol/L 3.3-5.1 [facility] Serum or plasma sodium measu rement (moles/volume)Ordered By: [facility] Valentina Herr on 09-13-2024 Sodium [Moles/Vol] 146 mmol/L High 133-145 [facility] Serum or plasma urea nitroge n measurement (mass/volume)Ordered By: [facility] Valentina Herr on 09-13-2024 Urea nitrogen [Mass/Vol] 16 mg/dL 4-19 [facility] T4 Free Directon 09-13-2024 T4 FREE DIRECT 1.50 ng/dL High 0.76-1.46 [facility] Comment on above: Performed By: #### L 501.9985, L501.9520, L506.0400, L501.9910, L503.0106, L500.4100, L100.0100, L500.4050, L506.1001 #### [facility] [address] [place], [place], [id number] T4 freeOrdered By: [facility] Alicia ness Nemesio on 09-13-2024 Free T4 [Mass/Vol] 1.50 ng/dL High 0.76-1.46 [facility] TSH DL <= 0.005 mIU/L QnOrde red By: [facility] on 09-13-2024 Thyroid Stimulating Hormone (TSH) 0.806 uIU/mL 0.300-4.20 0 [facility] Thyroid Stim Hormone (TSH)on 09-13-2024 TSH 0.806 uIU/mL Normal 0.300-4.20 0 [facility] Comment on above: Performed By: #### L 501.9985, L501.9520, L506.0400, L501.9910, L503.0106, L500.4100, L100.0100, L500.4050, L506.1001 #### [facility] [address] [place], [place], [id number] Total proteinOrdered By: [facility] Valentina Nemesio on 09-13-2024 Protein [Mass/Vol] 6.2 g/dL 5.9-8.4 [facility] Triglycerides measurementOrd ered By: [facility] Valentina Nemesio on 09-13-2024 Triglyceride [Mass/Vol] 174 mg/dL <199 [facility] Comment on above: The drugs N-Acetylcy steine and Metamizole may falsely depress this assay. Normal range: <150 mg/dLBorderline High: 150-199 mg/dLHigh: 200-499 mg/dLVery High: >500 mg/dL Vitamin B12 ser/plasOrdered By: [facility] Valentina Herr on 09-13-2024 Cobalamin (Vitamin B12) [Mass/Vol] 693 pg/mL 180-914 [facility] Vitamin D, 25-hydroxyOrdered By: [facility] Valentina Herr on 09-13-2024 Vitamin D 25-Hydroxy 47.4 ng/mL 30-100 [facility] Comment on above: Vitamin D StatusDefi ciency: <20 ng/mL (50nmol/L)Insufficiency: 20-30 ng/mL (50-75 nmol/L)Sufficiency: 30-100 ng/mL (75-250 nmol/L)Toxicity: >100 ng/mL (>250 nmol/L) White blood cell (WBC) count Ordered By: [facility] Valentina Herr on 09-13-2024 WBC (Bld) [#/Vol] 4.1 10*3/uL Low 4.4-11.0 [facility] XR ABDOMEN 2 VIEWS WITH CHES T 1 VIEWon 09-02-2024 XR ABDOMEN 2 VIEWS WITH CHEST 1 VIEW STUDY: Single View Chest and Abdomen Radiographs; 09/02/2024 2:17 PM INDICATION: Constipation. COMPARISON: 03/02/2022 CT Abdomen and Pelvis. 02/14/2022, 12/03/2020 XR Chest. ACCESSION NUMBER(S): [id number] ORDERING CLINICIAN: TECHNIQUE: Single view of the chest (two images) and two views (three images) of the abdomen. FINDINGS: CARDIOMEDIASTINAL SILHOUETTE: Cardiomediastinal silhouette is normal in size and configuration. LUNGS: Lungs are clear. There are no pleural effusions. There is no pneumothorax. ABDOMEN: Bowel gas pattern is normal without obstruction or ileus. Stool burden is moderate. There are no convincing calculi or abnormal calcifications. BONES: No acute osseous changes IMPRESSION: Moderate stool burden. No bowel obstruction or free air. Remainder as above. Signed by Andrei Rodriguez MD [facility] XR Chest View and Abdomen [place] 09-02-2024 Moderate stool burde n. No bowel obstruction or free air. Remainder as above. Signed by Andrei Rodriguez MD TELERADIOLOGY STUDY: Single View Chest and Abdomen Radiographs; 09/02/2024 2:17 PM INDICATION: Constipation. COMPARISON: 03/02/2022 CT Abdomen and Pelvis. 02/14/2022, 12/03/2020 XR Chest. ACCESSION NUMBER(S): [id number] ORDERING CLINICIAN: TECHNIQUE: Single view of the chest (two images) and two views (three images) of the abdomen. FINDINGS: CARDIOMEDIASTINAL SILHOUETTE: Cardiomediastinal silhouette is normal in size and configuration. LUNGS: Lungs are clear. There are no pleural effusions. There is no pneumothorax. ABDOMEN: Bowel gas pattern is normal without obstruction or ileus. Stool burden is moderate. There are no convincing calculi or abnormal calcifications. BONES: No acute osseous changes TELERADIOLOGY Andrei Rodriguez MD - 09/02/2024 STUDY: Single View Chest and Abdomen Radiographs; 09/02/2024 2:17 PM INDICATION: Constipation. COMPARISON: 03/02/2022 CT Abdomen and Pelvis. 02/14/2022, 12/03/2020 XR Chest. ACCESSION NUMBER(S): [id number] ORDERING CLINICIAN: TECHNIQUE: Single view of the chest (two images) and two views (three images) of the abdomen. FINDINGS: CARDIOMEDIASTINAL SILHOUETTE: Cardiomediastinal silhouette is normal in size and configuration. LUNGS: Lungs are clear. There are no pleural effusions. There is no pneumothorax. ABDOMEN: Bowel gas pattern is normal without obstruction or ileus. Stool burden is moderate. There are no convincing calculi or abnormal calcifications. BONES: No acute osseous changes IMPRESSION: Moderate stool burden. No bowel obstruction or free air. Remainder as above. Signed by Andrei Rodriguez MD [facility] Work Phone: Radiology Study observation (narrative) [facility] Work Phone: XR Chest View and Abdomen [place] and UprightOrdered By: Andrei Rodriguez on 09-02-2024 [facility] Work Phone: SURGICAL PATHOLOGYon 024 CASE REPORT Normal [facility] Comment on above: Order Comment: Speci men Type: TISSUE SPECIMEN Ordering Facility: [facility] Address: [address] [place] [address] Result Comment: Surg [facility] Pathology Report Case: [id number] Authorizing Provider: Bigg Butt Collected: 11/02/2023 08:55 AM Ordering Location: [facility] Received: 11/02/2023 07:15 PM [facility] Pathologist: Laurel Urban MD Specimen: Skin, Shave Biopsy, Left Inner Knee Performed By: #### S #### [facility] CLIA [id number] [address] [place] [address] [place] CLINICAL HISTORY Cutaneous horn - R/O underlying neoplasm Normal [facility] Comment on above: Order Comment: Speci men Type: TISSUE SPECIMEN Ordering Facility: [facility] Address: [address] [place] [address] Performed By: #### S #### [facility] CLIA [id number] [address] [place] [address] OF [facility] FINAL DIAGNOSIS Normal [facility] Comment on above: Order Comment: Speci men Type: TISSUE SPECIMEN Ordering Facility: [facility] Address: [address] [place] [address] Result Comment: A. S kin, left inner knee, shave biopsy: - Inflamed verruca vulgaris. SR/CR/dkheidi 11/04/2023 Performed By: #### S #### [facility] CLIA [id number] [address] [place] [address] OF [place] FINAL PERFORMING LAB Normal [facility] Comment on above: Order Comment: Speci men Type: TISSUE SPECIMEN Ordering Facility: [facility] Address: [address] [place] [address] Result Comment: Diag nostic interpretation performed at [facility], [address] [place] [address] CLIA# [id number] Network Operations Lead: Devang Jett M.D. Performed By: #### S #### [facility] [place] [id number] [address] [place] [address] [place] GROSS DESCRIPTION Normal [facility] Comment on above: Order Comment: Speci men Type: TISSUE SPECIMEN Ordering Facility: [facility] Address: [address] [place] [address] Result Comment: A. S kin, Shave Biopsy Received in formalin is a 1.3 x 0.9 x 0.7 cm shave of skin. On the skin surface there is a 0.9 cm marquis-brown, flaky, firm and elevated area. The specimen is bisected. Totally submitted in one cassette. Gross examination performed at [facility], [address] [place] [address] November 02, 2023 10:51 PM Performed By: #### S #### [facility] [id number] [address] [place] [address] OF [place] 25(OH)D3 [facility] [place] 2022 25-hydroxyvitamin D3 [Mass/Vol] 48.0 ng/mL Normal 31.0-80.0 [facility] Comment on above: Order Comment: Speci men Type: BLOOD SPECIMEN Ordering Facility: [facility] Address: [address] [place] [address] Performed By: #### 1 989-3 #### [facility] [id number] [address] [place] [address] STATES OF [facility] CBC W Auto Differential pane l (Bld)on 06-30-2023 Basophils (Bld) [#/Vol] 10*3/uL Normal <0.11 [facility] Comment on above: Order Comment: Speci men Type: BLOOD SPECIMEN Ordering Facility: [facility] Address: [address] [place] [address] Performed By: #### 5 7021-8 #### [facility] [place] [id number] [address] [id number] [address] [place] Basophils/100 WBC (Bld) 0.4 % Normal [facility] Comment on above: Order Comment: Speci men Type: BLOOD SPECIMEN Ordering Facility: [facility] Address: [address] [place] [address], [place] [address] Performed By: #### 5 7021-8 #### [facility] CLIA [id number] [address] [place] [address] [place] Differential cell count method Nom (Bld) Auto Normal [facility] Comment on above: Order Comment: Speci men Type: BLOOD SPECIMEN Ordering Facility: [facility] Address: [address] [place] [address], [place] [address] Performed By: #### 5 7021-8 #### [facility] CLIA [id number] [address] [place] [address] [place] Eosinophils (Bld) [#/Vol] 0.09 10*3/uL Normal <0.46 [facility] Comment on above: Order Comment: Speci men Type: BLOOD SPECIMEN Ordering Facility: [facility] Address: [address] [place] [address], [place] [address] Performed By: #### 5 7021-8 #### [facility] CLIA [id number] [address] [place] [address] [place] Eosinophils/100 WBC (Bld) 1.9 % Normal [facility] Comment on above: Order Comment: Speci men Type: BLOOD SPECIMEN Ordering Facility: [facility] Address: [address] [place] [address] Performed By: #### 5 7021-8 #### [facility] CLIA [id number] [address] [place] [address] [place] Erythrocyte distribution width (RBC) [Ratio] 13.0 % Normal 11.5-15.0 [facility] Comment on above: Order Comment: Speci men Type: BLOOD SPECIMEN Ordering Facility: [facility] Address: [address] [place] [address] Performed By: #### 5 7021-8 #### [facility] CLIA [id number] [address] [place] [address] [place] Hematocrit (Bld) [Volume fraction] 45.0 % Normal 39.0-51.0 [facility] Comment on above: Order Comment: Speci men Type: BLOOD SPECIMEN Ordering Facility: [facility] Address: [address] [place] [address] Performed By: #### 5 7021-8 #### [facility] CLIA [id number] [address] [place] [address] [place] Hemoglobin (Bld) [Mass/Vol] 14.8 g/dL Normal 13.0-17.0 [facility] Comment on above: Order Comment: Speci men Type: BLOOD SPECIMEN Ordering Facility: [facility] Address: [address] [place] [address] Performed By: #### 5 7021-8 #### [facility] CLIA [id number] [address] [place] [address] [place] Immature granulocytes (Bld) [#/Vol] 10*3/uL Normal <0.10 [facility] Comment on above: Order Comment: Speci men Type: BLOOD SPECIMEN Ordering Facility: [facility] Address: [address] [place] [address] Performed By: #### 5 7021-8 #### [facility] CLIA [id number] [address] [place] [address] [place] Immature granulocytes/100 WBC (Bld) 0.2 % Normal [facility] Comment on above: Order Comment: Speci men Type: BLOOD SPECIMEN Ordering Facility: [facility] Address: [address] [place] [address] Performed By: #### 5 7021-8 #### [facility] CLIA [id number] [address] [place] [address] [place] Lymphocytes (Bld) [#/Vol] 1.19 10*3/uL Normal 1.00-4.00 [facility] Comment on above: Order Comment: Speci men Type: BLOOD SPECIMEN Ordering Facility: [facility] Address: [address] [place] [address] Performed By: #### 5 7021-8 #### [facility] CLIA [id number] [address] [place] [address] [place] Lymphocytes/100 WBC (Bld) 25.6 % Normal [facility] Comment on above: Order Comment: Speci men Type: BLOOD SPECIMEN Ordering Facility: [facility] Address: [address] [place] [address] Performed By: #### 5 7021-8 #### [facility] CLIA [id number] [address] [place] [address] [place] MCH (RBC) [Entitic mass] 31.4 pg Normal 26.0-34.0 [facility] Comment on above: Order Comment: Speci men Type: BLOOD SPECIMEN Ordering Facility: [facility] Address: [address] [place] [address] Performed By: #### 5 7021-8 #### [facility] CLIA [id number] [address] [place] [address] [place] MCHC (RBC) [Mass/Vol] 32.9 g/dL Normal 30.5-36.0 [facility] Comment on above: Order Comment: Speci men Type: BLOOD SPECIMEN Ordering Facility: [facility] Address: [address] [place] [address] Performed By: #### 5 7021-8 #### [facility] CLIA [id number] [address] [place] [address] [place] MCV (RBC) [Entitic vol] 95.5 fL Normal 80.0-100.0 [facility] Comment on above: Order Comment: Speci men Type: BLOOD SPECIMEN Ordering Facility: [facility] Address: [address] [place] [address], [place] [address] Performed By: #### 5 7021-8 #### [facility] CLIA [id number] [address] [place] [address] [place] Monocytes (Bld) [#/Vol] 0.52 10*3/uL Normal <0.87 [facility] Comment on above: Order Comment: Speci men Type: BLOOD SPECIMEN Ordering Facility: [facility] Address: [address] [place] [address] Performed By: #### 5 7021-8 #### [facility] CLIA [id number] [address] [place] [address] [place] Monocytes/100 WBC (Bld) 11.2 % Normal [facility] Comment on above: Order Comment: Speci men Type: BLOOD SPECIMEN Ordering Facility: [facility] Address: [address] [place] [address], [place] [address] Performed By: #### 5 7021-8 #### [facility] CLIA [id number] [address] [place] [address] [place] Neutrophils (Bld) [#/Vol] 2.81 10*3/uL Normal 1.45-7.50 [facility] Comment on above: Order Comment: Speci men Type: BLOOD SPECIMEN Ordering Facility: [facility] Address: [address] [place] [address] Performed By: #### 5 7021-8 #### [facility] CLIA [id number] [address] [place] [address] [place] Neutrophils/100 WBC (Bld) 60.7 % Normal [facility] Comment on above: Order Comment: Speci men Type: BLOOD SPECIMEN Ordering Facility: [facility] Address: [address] [place] [address] Performed By: #### 5 7021-8 #### [facility] CLIA [id number] [address] [place] [id number] [place] Nucleated RBC (Bld) [#/Vol] 10*3/uL Normal <0.01 [facility] Comment on above: Order Comment: Speci men Type: BLOOD SPECIMEN Ordering Facility: [facility] Address: [address] [place] [address] Performed By: #### 5 7021-8 #### [facility] CLIA [id number] [address] [place] [address] [place] Nucleated RBC/100 WBC (Bld) [Ratio] 0.0 /100 WBC Normal [facility] Comment on above: Order Comment: Speci men Type: BLOOD SPECIMEN Ordering Facility: [facility] Address: [address] [place] [address] Performed By: #### 5 7021-8 #### [facility] CLIA [id number] [address] [place] [address] [place] Platelet mean volume (Bld) [Entitic vol] 10.3 fL Normal 9.0-12.7 [facility] Comment on above: Order Comment: Speci men Type: BLOOD SPECIMEN Ordering Facility: [facility] Address: [address] [place] [address] Performed By: #### 5 7021-8 #### [facility] CLIA [id number] [address] [place] [address] [place] Platelets (Bld) [#/Vol] 77 10*3/uL Low 150-400 [facility] Comment on above: Order Comment: Speci men Type: BLOOD SPECIMEN Ordering Facility: [facility] Address: [address] [place] [address] Result Comment: No c lot detected. Performed By: #### 5 7021-8 #### [facility] CLIA [id number] [address] [place] [address] [place] RBC (Bld) [#/Vol] 4.71 10*6/uL Normal 4.20-6.00 [facility] Comment on above: Order Comment: Speci men Type: BLOOD SPECIMEN Ordering Facility: [facility] Address: [address] [place] [address], [place] [address] Performed By: #### 5 7021-8 #### [facility] CLIA [id number] [address] [place] [address] [place] WBC (Bld) [#/Vol] 4.64 10*3/uL Normal 3.70-11.00 [facility] Comment on above: Order Comment: Speci men Type: BLOOD SPECIMEN Ordering Facility: [facility] Address: [address] [place] [address], [place] [address] Performed By: #### 5 7021-8 #### [facility] CLIA [id number] [address] [place] [address] [place] Comprehensive metabolic 2000 panelon 06-30-2023 Albumin [Mass/Vol] 4.2 g/dL Normal 3.9-4.9 [facility] Comment on above: Order Comment: Speci men Type: BLOOD SPECIMEN Ordering Facility: [facility] Address: [address] [place] [address], [place] [address] Performed By: #### 2 4331-1, 2131-9, 3016-3, 44417-6 #### [facility] CLIA [id number] [address] [place] [address] [place] ALP [Catalytic activity/Vol] 99 U/L Normal 38-113 [facility] Comment on above: Order Comment: Speci men Type: BLOOD SPECIMEN Ordering Facility: [facility] Address: [address] [place] [address], [place] [address] Performed By: #### 2 4331-1, 2131-9, 3016-3, 30338-3 #### [facility] CLIA [id number] [address] [place] [address] [place] ALT [Catalytic activity/Vol] 12 U/L Normal 10-54 [facility] Comment on above: Order Comment: Speci men Type: BLOOD SPECIMEN Ordering Facility: [facility] Address: [address] [place] [address] Performed By: #### 2 4331-1, 2132-03, 3015-3, 16585-5 #### [facility] CLIA [id number] [address] [place], [place] [address] [place] Anion gap [Moles/Vol] 12 mmol/L Normal 9-18 [facility] Comment on above: Order Comment: Speci men Type: BLOOD SPECIMEN Ordering Facility: [facility] Address: [address] [place] [address] Performed By: #### 2 4331-1, 2132-03, 3015-3, 26140-2 #### [facility] CLIA [id number] [address] [place] [address] [place] AST [Catalytic activity/Vol] 14 U/L Normal 14-40 [facility] Comment on above: Order Comment: Speci men Type: BLOOD SPECIMEN Ordering Facility: [facility] Address: [address] [place] [address] Performed By: #### 2 4331-1, 2132-03, 3015-3, 32815-8 #### [facility] CLIA [id number] [address] [place], [place] [address] [place] Bilirubin [Mass/Vol] 0.4 mg/dL Normal 0.2-1.3 [facility] Comment on above: Order Comment: Speci men Type: BLOOD SPECIMEN Ordering Facility: [facility] Address: [address] [place] [address] Performed By: #### 2 4331-1, 9, 3015-3, 60748-9 #### [facility] CLIA [id number] [address] [place] [address] [place] Calcium [Mass/Vol] 9.2 mg/dL Normal 8.5-10.2 [facility] Comment on above: Order Comment: Speci men Type: BLOOD SPECIMEN Ordering Facility: [facility] Address: [address] [place] [address] Performed By: #### 2 4331-1, 2132-03, 3015-3, 98039-7 #### [facility] CLIA [id number] [address] [place], [place] [address] [place] Chloride [Moles/Vol] 106 mmol/L High 97-105 [facility] Comment on above: Order Comment: Speci men Type: BLOOD SPECIMEN Ordering Facility: [facility] Address: [address] [place] [address] Performed By: #### 2 4331-1, 2132-03, 3, 86931-7 #### [facility] CLIA [id number] [address] [place], [place] [address] [place] CO2 [Moles/Vol] 25 mmol/L Normal 22-30 [facility] Comment on above: Order Comment: Speci men Type: BLOOD SPECIMEN Ordering Facility: [facility] Address: [address] [place] [address] Performed By: #### 2 4331-1, 9, 3015-3, 67533-2 #### [facility] CLIA [id number] [address] [place], [place] [address] [place] Creatinine [Mass/Vol] 1.12 mg/dL Normal 0.73-1.22 [facility] Comment on above: Order Comment: Speci men Type: BLOOD SPECIMEN Ordering Facility: [facility] Address: [address] [place] [address] Performed By: #### 2 4331-1, 9, 3015-3, 14909-1 #### [facility] CLIA [id number] [address] [place] [address] [place] Creatinine and Glomerular filtration rate.predicted panel (S/P/Bld) 75 mL/min/1.73m??? Normal >=60 [facility] Comment on above: Order Comment: Jhon jones Type: BLOOD SPECIMEN Ordering Facility: [facility] Address: [address] [place] [address], [place] [address] Result Comment: Bozena mated Glomerular Filtration Rate (eGFR) is calculated using the 2020 CKD-EPI creatinine equation. This equation utilizes serum creatinine, sex, and age as parameters. The creatinine assay has traceable calibration to isotope dilution-mass spectrometry. Refer to KDIGO guidelines for clinical interpretation. In patients with unstable renal function, e.g. those with acute kidney injury, the eGFR may not accurately reflect actual GFR. Performed By: #### 2 4331-1, 2131-9, 6-3, 73836-6 #### [facility] CLIA [id number] [address] [place] [address] [place] Glucose [Mass/Vol] 142 mg/dL High 74-99 [facility] Comment on above: Order Comment: Jhon jones Type: BLOOD SPECIMEN Ordering Facility: [facility] Address: [address] [place] [address], [place] [address] Result Comment: The [place] Diabetes Association (ADA) provides guidance for cutoff values for fasting glucose and random glucose. The ADA defines fasting as no caloric intake for at least 8 hours. Fasting plasma glucose results between 100 to 125 mg/dL indicate increased risk for diabetes (prediabetes). Fasting plasma glucose results greater than or equal to 126 mg/dL meet the criteria for diagnosis of diabetes. In the absence of unequivocal hyperglycemia, results should be confirmed by repeat testing. In a patient with classic symptoms of hyperglycemia or hyperglycemic crisis, random plasma glucose results greater than or equal to 200 mg/dL meet the criteria for diagnosis of diabetes. Reference: Standards of Medical Care in Diabetes 2016, [place] Diabetes Association. Diabetes Care. 2016.39(Suppl 1). Performed By: #### 2 4331-1, 2131-9, 3016-3, 92130-1 #### [facility] CLIA [id number] [address] [address] [place] Potassium [Moles/Vol] 3.6 mmol/L Low 3.7-5.1 [facility] Comment on above: Order Comment: Speci men Type: BLOOD SPECIMEN Ordering Facility: [facility] Address: [address] [place] [address], [place] [address] Performed By: #### 2 4331-1, 2132-03, 3015-3, 91727-4 #### [facility] CLIA [id number] [address] [address] [place] Protein [Mass/Vol] 6.7 g/dL Normal 6.3-8.0 [facility] Comment on above: Order Comment: Speci men Type: BLOOD SPECIMEN Ordering Facility: [facility] Address: [address] [place] [address], [place] [address] Performed By: #### 2 4331-1, 2132-03, 3015-3, 71104-3 #### [facility] CLIA [id number] [address] [place], [place] [address] [place] Sodium [Moles/Vol] 143 mmol/L Normal 136-144 [facility] Comment on above: Order Comment: Speci men Type: BLOOD SPECIMEN Ordering Facility: [facility] Address: [address] [place] [address], [place] [address] Performed By: #### 2 4331-1, 2132-03, 3015-3, 52865-5 #### [facility] CLIA [id number] [address] [address] [place] Urea nitrogen [Mass/Vol] 16 mg/dL Normal 9-24 [facility] Comment on above: Order Comment: Speci men Type: BLOOD SPECIMEN Ordering Facility: [facility] Address: [address] [place] [address], [place] [address] Performed By: #### 2 4331-1, 2132-03, 3015-3, 45200-2 #### [facility] CLIA [id number] [address] [place] HbA1c (Bld)on 06-30-2023 Average glucose Estimated from glycated hemoglobin (Bld) [Mass/Vol] 114 mg/dL Normal [facility] Comment on above: Order Comment: [facility] Type: BLOOD SPECIMEN Ordering Facility: [facility] Address: [address] [place] [address], [place] [address] Result Comment: eAG: (Estimated average glucose) is a calculated value from HgbA1c and is care support representative of the average blood glucose level in the last 2-3 month period. Performed By: #### 5 5454-3 #### [facility] [place] [id number] [address] [place] [address] STATES OF [facility] HbA1c (Bld) [Mass fraction] 5.6 % Normal 4.3-5.6 [facility] Comment on above: Order Comment: [facility] Type: BLOOD SPECIMEN Ordering Facility: [facility] Address: [address] [place] [address], [place] [address] Result Comment: [place] Diabetes Association guidelines indicate that patients with HgbA1c in the range 5.7-6.4% are at increased risk for development of diabetes, and intervention by lifestyle modification may be beneficial. HgbA1c greater or equal to 6.5% is considered diagnostic of diabetes. Performed By: #### 5 5454-3 #### [facility] IA [id number] [address] [place] [address] [place] Lipid 1996 panelon 3 Cholesterol [Mass/Vol] 128 mg/dL Normal <200 [facility] Comment on above: Order Comment: [facility] Type: BLOOD SPECIMEN Ordering Facility: [facility] Address: [address] [place] [address], [place] [address] Result Comment: <200 mg/dL, Desirable 200-239 mg/dL, Borderline high >239 mg/dL, High Performed By: #### 2 4331-1, 2132-03, 3, #### [facility] CLIA [id number] [address] [facility] [place] [address] [place] Cholesterol in HDL [Mass/Vol] 35 mg/dL Low >39 [facility] Comment on above: Order Comment: Jhon jones Type: BLOOD SPECIMEN Ordering Facility: [facility] Address: [address] [place] [address], [place] [address] Result Comment: 40-5 9 mg/dL, Acceptable >59 mg/dL, High: Negative risk factor for coronary heart disease <40 mg/dL, Low: Positive risk factor for coronary heart disease Performed By: #### 2 4331-1, 2132-03, 3015-09, #### [facility] CLIA [id number] [address] [place] Cholesterol in LDL [Mass/Vol] 56 mg/dL Normal <100 [facility] Comment on above: Order Comment: Jhon jones Type: BLOOD SPECIMEN Ordering Facility: [facility] Address: [address] [place] [address], [place] [address] Result Comment: <100 mg/dL, Optimal 100-129 mg/dL, Near optimal/above optimal 130-159 mg/dL, Borderline high 160-189 mg/dL, High >189 mg/dL, Very high Secondary prevention optimal LDL Cholesterol levels are recommended to be < 70 mg/dL Performed By: #### 2 4331-1, 2132-03, 3, #### [facility] CLIA [id number] [address] [place], [place] [address] [place] Cholesterol in LDL/Cholesterol in HDL [Mass ratio] 1.60 {ratio} Normal <2.54 [facility] Comment on above: Order Comment: Jhon karen Type: BLOOD SPECIMEN Ordering Facility: [facility] Address: [address] [place] [address], [place] [address] Result Comment: Refe adrianace: 1. National Cholesterol Education Program ATP III Guideline At-A-Glance Quick Desk Reference: National Heart, Lung, and Blood [place]. National Institutes of Health. 2001: NIH Publication No. 01-3305. 2. An International Atherosclerosis Society position paper: global recommendations for the management of dyslipidemia: executive summary, Atherosclerosis. 2014: 232(2):410-413. Performed By: #### 2 4331-1, 2132-03, 3015-3, 20754-8 #### [facility] CLIA [id number] [address] [address] [place] Cholesterol in VLDL [Mass/Vol] 37 mg/dL High <30 [facility] Comment on above: Order Comment: Jhon jones Type: BLOOD SPECIMEN Ordering Facility: [facility] Address: [address] [place] [address] Performed By: #### 2 1-1, 2132-03, 3, 83918-6 #### [facility] CLIA [id number] [address] [place] [address] [place] Cholesterol non HDL [Mass/Vol] 93 mg/dL Normal <130 [facility] Comment on above: Order Comment: Jhon jones Type: BLOOD SPECIMEN Ordering Facility: [facility] Address: [address] [place] [address], [place] [address] Result Comment: <130 mg/dL, Optimal 130-159 mg/dL, Near optimal/above optimal 160-189 mg/dL, Borderline high 190-219 mg/dL, High >219 mg/dL, Very high Secondary prevention optimal non HDL Cholesterol levels are recommended to be <100 mg/dL Performed By: #### 2 4331-1, 2132-03, 3, 04557-8 #### [facility] CLIA [id number] [address] [address] [place] Cholesterol.total/Cho lesterol in HDL [Mass ratio] 3.66 {ratio} Normal <5.10 [facility] Comment on above: Order Comment: Jhon jones Type: BLOOD SPECIMEN Ordering Facility: [facility] Address: [address] [place] [address], [place] [address] Performed By: #### 2 4331-1, 2131-9, 6-3, 56670-6 #### [facility] CLIA [id number] [address] [place] [address] [place] FASTING TIME UNKNOWN Normal [facility] Comment on above: Order Comment: Speci men Type: BLOOD SPECIMEN Ordering Facility: [facility] Address: [address] [place] [address], [place] [address] Performed By: #### 2 4331-1, 9, 6-3, 54689-6 #### [facility] CLIA [id number] [address] [place] [address] [place] Triglyceride [Mass/Vol] 187 mg/dL High <150 [facility] Comment on above: Order Comment: Speci men Type: BLOOD SPECIMEN Ordering Facility: [facility] Address: [address] [place] [address], [place] [address] Result Comment: <150 mg/dL, Normal 150-199 mg/dL, Borderline high 200-499 mg/dL, High >499 mg/dL, Very high Performed By: #### 2 4331-1, 9, 3015-3, 63004-8 #### [facility] CLIA [id number] [address] [place] [address] [place] PSA/PROSTSPECAG SCRNon 06-30 Prostate specific Ag [Mass/Vol] 0.54 ng/mL Normal <2.60 [facility] Comment on above: Order Comment: Speci men Type: BLOOD SPECIMEN Ordering Facility: [facility] Address: [address] [place] [address], [place] [address] Result Comment: Tota l PSA test methodology used is the Electrochemiluminescence Immunoassay by [employer]. Total PSA values by differing methodologies cannot be interchanged. Performed By: #### P SAS1 #### [facility] CLIA [id number] [address] [place], [place] [id number] [place] TSH SerPl-aCncon 06-30-2023 TSH Qn 2.580 m[IU]/L Normal 0.270-4.20 0 [facility] Comment on above: Order Comment: Speci men Type: BLOOD SPECIMEN Ordering Facility: [facility] Address: [address] [place] [address], [place] [address] Performed By: #### 2 4331-1, 9, 6-3, 80649-9 #### [facility] CLIA [id number] [address] [place] [address] [place] Vit B12 [facility] 06-30- 023 Cobalamin (Vitamin B12) [Mass/Vol] 494 pg/mL Normal 232-1245 [facility] Comment on above: Order Comment: Speci men Type: BLOOD SPECIMEN Ordering Facility: [facility] Address: [address] [place] [address], [place] [address] Performed By: #### 2 4331-1, 9, 3, 39570-5 #### [facility] CLIA [id number] [address] [place] [address] [place] APTTon 03-02-2022 aPTT Coag (Bld) [Time] 33 s Normal 26 - 39 [facility] Comment on above: Result Comment: THE APTT IS NO LONGER USED FOR MONITORING UNFRACTIONATED HEPARIN THERAPY. FOR MONITORING HEPARIN THERAPY, USE THE HEPARIN ASSAY. Performed By: #### A PTT #### [address] [address] BASIC METABOLIC PANELon 02-16 Anion gap [Moles/Vol] 11 mmol/L Normal 10 - 20 [facility] Comment on above: Performed By: #### B MP #### [address] [address] Calcium [Mass/Vol] 9.0 mg/dL Normal 8.6 - 10.3 [facility] Comment on above: Performed By: #### B MP #### [address] [address] Chloride [Moles/Vol] 108 mmol/L High 98 - 107 [facility] Comment on above: Performed By: #### B MP #### [address] [address] Creatinine [Mass/Vol] 1.18 mg/dL Normal 0.50 - 1.30 [facility] Comment on above: Performed By: #### B MP #### [address] [address] GFR/1.73 sq M.predicted among non-blacks MDRD (S/P/Bld) [Vol rate/Area] 71 mL/min/{1.73_m2} Normal >90 [facility] Comment on above: Result Comment: CALC ULATIONS OF ESTIMATED GFR ARE PERFORMED USING THE 2020 CKD-EPI STUDY REFIT EQUATION WITHOUT THE RACE VARIABLE FOR THE IDMS-TRACEABLE CREATININE METHODS. https://jasn.asnjournals.org/content/early//ASN.786531 4342 Performed By: #### B MP #### [address] [address] Glucose [Mass/Vol] 154 mg/dL High 74 - 99 [facility] Comment on above: Performed By: #### B MP #### [address] [address] HCO3 (Bld) [Moles/Vol] 27 mmol/L Normal 21 - 32 [facility] Comment on above: Performed By: #### B MP #### [address] [address] Potassium [Moles/Vol] 4.0 mmol/L Normal 3.5 - 5.3 [facility] Comment on above: Performed By: #### B MP #### [address] [address] Sodium [Moles/Vol] 142 mmol/L Normal 136 - 145 [facility] Comment on above: Performed By: #### B MP #### [address] [address] Urea nitrogen [Mass/Vol] 18 mg/dL Normal 6 - 23 [facility] Comment on above: Performed By: #### B MP #### [address] [address] CBC AND DIFFERENTIALon 03-02 Basophils (Bld) [#/Vol] 0.00 10*3/uL Normal 0.00 - 0.10 [facility] Comment on above: Performed By: #### C BCDF #### [address] [address] Basophils/100 WBC (Bld) 0.6 % Normal 0.0 - 2.0 [facility] Comment on above: Performed By: #### C BCDF #### [address] [address] Eosinophils (Bld) [#/Vol] 0.10 10*3/uL Normal 0.00 - 0.70 [facility] Comment on above: Performed By: #### C BCDF #### [address] [address] Eosinophils/100 WBC (Bld) 1.2 % Normal 0.0 - 6.0 [facility] Comment on above: Performed By: #### C BCDF #### [address] [address] Erythrocyte distribution width (RBC) [Ratio] 14.1 % Normal 11.5 - 14.5 [facility] Comment on above: Performed By: #### C BCDF #### [address] [address] Hematocrit (Bld) [Volume fraction] 43.6 % Normal 41.0 - 52.0 [facility] Comment on above: Performed By: #### C BCDF #### [address] [address] Hemoglobin (Bld) [Mass/Vol] 14.6 g/dL Normal 13.5 - 17.5 [facility] Comment on above: Performed By: #### C BCDF #### [address] [address] Lymphocytes (Bld) [#/Vol] 0.80 10*3/uL Low 1.20 - 4.80 [facility] Comment on above: Performed By: #### C BCDF #### [address] [address] Lymphocytes/100 WBC (Bld) 17.4 % Normal 13.0 - 44.0 [facility] Comment on above: Performed By: #### C BCDF #### [address] [address] MCHC (RBC) [Mass/Vol] 33.6 g/dL Normal 32.0 - 36.0 [facility] Comment on above: Performed By: #### C BCDF #### [address] [address] MCV (RBC) [Entitic vol] 93 fL Normal 80 - 100 [facility] Comment on above: Performed By: #### C BCDF #### [address] [address] Monocytes (Bld) [#/Vol] 0.40 10*3/uL Normal 0.10 - 1.00 [facility] Comment on above: Performed By: #### C BCDF #### [address] [address] Monocytes/100 WBC (Bld) 9.0 % Normal 2.0 - 10.0 [facility] Comment on above: Performed By: #### C BCDF #### [address] [address] Neutrophils (Bld) [#/Vol] 3.40 10*3/uL Normal 1.20 - 7.70 [facility] Comment on above: Result Comment: Perc ent differential counts (%) should be interpreted in the context of the absolute cell counts (cells/L). Performed By: #### C BCDF #### [address] [address] Neutrophils/100 WBC (Bld) 71.8 % Normal 40.0 - 80.0 [facility] Comment on above: Performed By: #### C BCDF #### [address] [address] NUCLEATED RBC 0.1 /100 WBC Normal [facility] Comment on above: Performed By: #### C BCDF #### [place] [id number] [place] [address] Platelets (Bld) [#/Vol] 101 10*3/uL Low 150 - 450 [facility] Comment on above: Performed By: #### C BCDF #### [address] [address] RBC 4.70 x10E12/L Normal 4.50 - 5.90 [facility] Comment on above: Performed By: #### C BCDF #### [address] [address] WBC (Bld) [#/Vol] 4.7 10*3/uL Normal 4.4 - 11.3 [facility] Comment on above: Performed By: #### C BCDF #### [address] [address] [address] ABDOMEN AND PELVIS W IV C [facility] 03-02-2022 CT ABDOMEN AND PELVIS W IV CONTRAST Patient Name: CHIP EMMANUEL STUDY: CT ABDOMEN AND PELVIS W IV CONTRAST; 03/02/2022 8:45 pm INDICATION: abd pain . COMPARISON: None. ACCESSION NUMBER(S): [id number] ORDERING CLINICIAN: ARDEN PEDRO TECHNIQUE: Axial CT images of the abdomen and pelvis with coronal and sagittal reconstructed images obtained after intravenous administration of 90 mL Omnipaque 350 FINDINGS: LOWER CHEST: No acute abnormality of the lung bases. BONES: No acute osseous abnormality. ABDOMINAL WALL: Small fat containing umbilical hernia. ABDOMEN: LIVER: Within normal limits. BILE DUCTS: Normal caliber. GALLBLADDER: Cholelithiasis, gallbladder is filled with calculi. The gallbladder is nondistended and there are no pericholecystic inflammatory changes. PANCREAS: Within normal limits. SPLEEN: Within normal limits. ADRENALS: Within normal limits. KIDNEYS and URETERS: Symmetric renal enhancement. No hydronephrosis or perinephric fluid collection. VESSELS: No aortic aneurysm. RETROPERITONEUM: No pathologically enlarged retroperitoneal lymph nodes. PELVIS: REPRODUCTIVE ORGANS: No pelvic masses. BLADDER: The urinary bladder is distended, extending to the level of the umbilicus. BOWEL: There is circumferential perianal low-density in region of the muscular wall/anal sphincter, suspicious for early/developing perianal abscess. This measures approximately 2.4 cm in diameter. There is a large amount of stool in the rectum. No dilated bowel. Colonic diverticulosis without acute diverticulitis. PERITONEUM: No ascites or free air, no fluid collection. IMPRESSION: Suspected early or developing perianal abscess. Large amount of stool in the rectum. Distended urinary bladder, extending to the level the umbilicus. Cholelithiasis. Electronically signed by: JAYASHREE FOLEY MD Normal [facility] HEPATIC FUNCTION PANELon Albumin [Mass/Vol] 4.2 g/dL Normal 3.4 - 5.0 [facility] Comment on above: Performed By: #### L IPAS #### [place] [address] ALP [Catalytic activity/Vol] 79 U/L Normal 33 - 120 [facility] Comment on above: Performed By: #### L IPAS #### [place] [address] ALT [Catalytic activity/Vol] 10 U/L Normal 10 - 52 [facility] Comment on above: Result Comment: Viktoriya ents treated with Sulfasalazine may generate falsely decreased results for ALT. Performed By: #### L IPAS #### [place] [address] AST [Catalytic activity/Vol] 11 U/L Normal 9 - 39 [facility] Comment on above: Performed By: #### L IPAS #### [address] [address] Bilirubin [Mass/Vol] 0.5 mg/dL Normal 0.0 - 1.2 [facility] Comment on above: Performed By: #### L IPAS #### [address] [address] Bilirubin.indirect [Mass/Vol] 0.1 mg/dL Normal 0.0 - 0.3 [facility] Comment on above: Performed By: #### L IPAS #### [address] [address] Protein [Mass/Vol] 6.5 g/dL Normal 6.4 - 8.2 [facility] Comment on above: Performed By: #### L IPAS #### [address] [address] LACTATEon 03-02-2022 Lactate [Moles/Vol] 1.3 mmol/L Normal 0.4 - 2.0 [facility] Comment on above: Result Comment: Jackie puncture immediately after or during the administration of Metamizole may lead to falsely low results. Testing should be performed immediately prior to Metamizole dosing. Performed By: #### L IPAS #### [address] [address] LIPASEon 03-02-2022 Lipase [Catalytic activity/Vol] 41 U/L Normal 9 - 82 [facility] Comment on above: Result Comment: Jackie puncture immediately after or during the administration of Metamizole may lead to falsely low results. Testing should be performed immediately prior to Metamizole dosing. M-nydwsr-u-benzoquinone imine (metabolite of Acetaminophen) will generate erroneously low results in samples for patients that have taken toxic doses of acetaminophen. Performed By: #### L IPAS #### [address] [address] PT/INRon 03-02-2022 PT Coag (PPP) [Time] 11.6 s Normal 9.8 - 13.4 [facility] Comment on above: Performed By: #### P TINR #### [address] [address] PT, INR 1.0 Normal 0.9 - 1.1 [facility] Comment on above: Performed By: #### P TINR #### [address] [address] Provider Note - ED v3on 02-16 Provider Note - ED v3 Provider Note: Chart Review: ED NOTES ED NOTES: HPI: Patient is a 56-year-old male chief complaint of rectal bleeding. Happened about 30 minutes prior to arrival. States he had some right lower quadrant pain just prior. Denies any urinary complaints. No fevers chills or night sweats. No chest pain. States it is worse when he is sitting upright and better when he is lying down. ROS: All systems are negative other than as noted in HPI. Physical Exam I have reviewed the triage vital signs. Const: Well nourished, well developed, appears stated age, no acute distress Eyes: PERRL, EOM intact, no conjunctival injection, vision grossly normal HENT: Neck supple without meningismus , Moist mucous membranes, no pharyengeal swelling or exudate CV: Regular rate and rhythm, Warm, well-perfused extremities. Chest non tender RESP: Lungs clear bilaterally, Unlabored respiratory effort GI: soft, non-tender, non-distended, no masses : MSK: No gross deformities appreciated Skin: Warm, dry. No rashes Neuro: Alert and oriented x4, GCS 15 , respiratory equipment assistant II-XII grossly intact. Sensation and motor function of extremities grossly intact. Psych: Appropriate mood and affect. HISTORY OF PRESENTING ILLNESS CHIP is a 56 year old Male and was seen by me at 02-Mar-2022 19:33 for a chief complaint of rectal pain . Triage Information: Most recent Vital Sign Value Date Temp (F): 98.2 03-02-2022 19:40 Temp (C): 36.8 03-02-2022 19:40 Heart Rate (beats/min): 77 03-02-2022 19:40 Respirations (breaths/min): 18 03-02-2022 19:40 SpO2 (%): 98 03-02-2022 19:40 BP Systolic (mm Hg): 114 03-02-2022 19:40 BP Diastolic (mm Hg): 80 03-02-2022 19:40 PAST MEDICAL HISTORY ALLERGIES/INTOLERANCES: No Known Allergies HEALTH HISTORY: No documented data. OUTPATIENT MEDICATIONS: Home Medications Review Status for Reconciliation: N/A Med Status: Patient Currently Takes Medications Drug Name: docusate sodium 250 mg oral capsule Instructions: 1 cap(s) orally once a day Drug Name: albuterol 90 mcg/inh inhalation aerosol Instructions: 2 puff(s) inhaled every 4 hours, As Needed -for shortness of breath Drug Name: Inderal LA 80 mg oral capsule, extended release Instructions: 1 cap(s) orally once a day Drug Name: levothyroxine 150 mcg (0.15 mg) oral tablet Instructions: 1 tab(s) orally once a day Drug Name: Desenex Maximum 1% topical cream Instructions: Apply topically to affected area 2 times a day Drug Name: ZyPREXA 20 mg oral tablet Instructions: 1 tab(s) orally once a day (at bedtime) Drug Name: Vitamin B12 1000 mcg oral tablet Instructions: 1 tab(s) orally once a day Drug Name: haloperidol 5 mg oral tablet Instructions: 1 tab(s) orally once a day (at bedtime) Drug Name: Spiriva HandiHaler 18 mcg inhalation capsule Instructions: 1 cap(s) inhaled once a day Drug Name: Crestor 5 mg oral tablet Instructions: 1 tab(s) orally once a day Drug Name: benztropine 1 mg oral tablet Instructions: 1 tab(s) orally 2 times a day SIGNIFICANT EVENTS: Immunizations Description:Tdap Past Medical History Description:BIPOLAR Description:SCHIZOPHREMIA Description:ALCOHOL ABUSE CRITICAL CARE RESULTS: Recent Lab Results: I have reviewed these laboratory results: Hepatic Function Panel 02-Mar-2022 19:48:00 ResultValue Aspartate Transaminase, Serum 11 ALB 4.2 T Bili 0.5 Bilirubin, Serum Direct - Conjugated 0.1 ALKP 79 Alanine Aminotransferase, Serum 10 T Pro 6.5 Complete Blood Count + Differential 02-Mar-2022 19:48:00 ResultValue White Blood Cell Count 4.7 Nucleated Erythrocyte Count 0.1 Red Blood Cell Count 4.70 HGB 14.6 HCT 43.6 MCV 93 MCHC 33.6 PLT 101 L RDW-CV 14.1 Neutrophil % 71.8 Lymphocyte % 17.4 Monocyte % 9.0 Eosinophil % 1.2 Basophil % 0.6 Neutrophil Count 3.40 Lymphocyte Count 0.80 L Monocyte Count 0.40 Eosinophil Count 0.10 Basophil Count 0.00 Basic Metabolic Panel 02-Mar-2022 19:48:00 ResultValue Glucose, Serum 154 H NA 142 K 4.0 CL 108 H Bicarbonate, Serum 27 Anion Gap, Serum 11 BUN 18 CREAT 1.18 GFR Male 71 Calcium, Serum 9.0 PT + INR, Plasma 02-Mar-2022 19:48:00 ResultValue Prothrombin Time, Plasma 11.6 International Normalized Ratio, Plasma 1.0 Lactate, Level 02-Mar-2022 19:48:00 ResultValue Lactate, Level 1.3 Lipase, Serum 02-Mar-2022 19:48:00 ResultValue Lipase, Serum 41 Activated Partial Thromboplastin Time 02-Mar-2022 19:48:00 ResultValue Activated Partial Thromboplastin Time 33 Radiology Results: Impression: Suspected early or developing perianal abscess. Large amount of stool in the rectum. Distended urinary bladder, extending to the level the umbilicus. Cholelithiasis. CT Abdomen and Pelvis with IV Contrast [Mar 02 2022 9:24PM] VITAL SIGNS: T PRBP SpO2O2(LPM) %FiO2 Method 02-Mar-2022 21: (more content not included)... [facility] Risk Screen - Adult Emergenc yon 03-02-2022 Risk Screen - Adult Emergency Preferred Language: Preferred Language: Preferred Language for Discussing Health Care (patient/designee)Emirati Advanced Directives: Advance Directive/DNRno Family Violence Adult: Abuse Screen: Are you or have you been threatened or abused physically, emotionally, or sexually by anyoneno Learning Assessment (Patient): Learning Assessment (Patient): Patient is Able to be Assessed for Learningyes Factors Influencing Readiness to Learnacuteness of illness Factors that Impact Ability to Learnnone Devices/Methods Used to Communicatenone Learning Preferencesaudio Cultural Considerationsnone Developmental Considerationsnone Presybeterian Considerationsnone Learning Assessment (Other Learner): Learning Assessment (Other Learner): Other learner availableno Pressure Injury/TB/Substance: Pressure Injury: Do you have a coughno Smoking Statusmoderate user (uses 11-30 cig/day, OR 0.5-1.5 ppd, OR 2-3 cans/pouches loose leaf tobacco per week, OR 0.5-1.5 vape pods per day) Tobacco Cessation Education (provide if tobacco use within the last 12 mos) patient declined Alcohol Usehistory of abuse Drug Usedenies Admission Risk Screen: Significant IndicatorsComplete CAGE: CAGE: Is this an injured patient [place] a Tra[place] Center [place] [place] no Electronic Signatures: Sakina Arias (NERY) (Signed 02-Mar-2022 20:01) Authored: Preferred Language, Advanced Directives, Family Violence Adult, Learning Assessment (Patient), Learning Assessment (Other Learner), Pressure Injury/TB/Substance, Pressure Injury, CAGE Last Updated: 02-Mar-2022 20:01 by Sakina Arias (NERY) [facility] TYPE + SCREENon 03-02-2022 ABO TYPE O Normal [facility] Comment on above: Performed By: #### T +S #### [address] [address] RH TYPE Positive Normal [facility] Comment on above: Performed By: #### T +S #### [address] [address] Triage - EDon 03-02-2022 Triage - ED Quick Triage: The patient and/or guardian verbally acknowledges placement for services into the following (when Urgent Care Service hours are operating):emergency department Chart Review: ARRIVAL INFORMATION Mode of Arrival: [facility] CHIEF COMPLAINT CHIP EMMANUEL is a Male patient with a chief complaint of rectal pain. Triage Date/Time: 02-Mar-2022 19:40 NEGRA: 3 Pain Rating (0-10): 4 = Moderate Pain location: LOWER ABDOMEN Vital Signs: Temperature: 98.2F ( 36.8C) Blood Pressure: 114/80 Mean: Heart Rate: 77 Respiratory Rate: 18 Pulse Oximetry: 98% Height: 5 feet 11.00 inches. 180.3 CM Weight: 210.5 pounds. Calculated 95.5 kg. Calculated BMI (kg/m2): 29.377 Calculated BSA (m2) 2.19 [place] Coma Scale: Best Eye Response: (E4) spontaneous Best Motor Response: (M6) obeys commands Best Verbal Response: (V5) oriented Bony Score: 15 Cough lasting greater than 3 weeks: no Allergies: no Patient has homicidal thoughts: no Risk Screens Suicide Risk Screen In the Past Month: Have you wished you were or wished you could go to sleep and not wake up no In the Past Month: Have you had any actual thoughts of killing yourself no In Your Lifetime: Have you ever done anything, started to do anything, or prepared to do anything to end your life no Shook Fall Scale Screening Has the patient fallen before (or is the patient in the ED as a result of a fall) has not had a fall Does the patient have an impaired gait does not have impaired gait Is the patient cognitively impaired not cognitively impaired Interventions: Shook Fall Interventions: LOW INTERVENTIONS: *patient oriented to surroundings and call system, * patient/family falls education completed and documented, *patients fall status communicated during bedside handoff, *whiteboard updated, *mode of toileting discussed with patient, *bed in low position with brakes locked, *call light in reach, * non-skid footwear TRAVEL HISTORY Travel History Coronavirus Screening: no exposure or symptoms Travel Exposure History: NO travel to International locations in the past 30 days PAIN Pain Scale Used: MARYANN Pain Rating (0-10): 4 = Moderate Past Medical History: Past Medical History Reviewedyes Electronic Signatures: Santos Antonio (NERY) (Signed 02-Mar-2022 19:41) Authored: Quick Triage, Risk Screens, Pain, Travel History, Chart Review, Scores, Past Medical History Last Updated: 02-Mar-2022 19:41 by Santos Antonio (NERY) Normal [facility] BASIC METABOLIC PANELon 07-3 Anion gap [Moles/Vol] 11 mmol/L Normal 10 - 20 [facility] Comment on above: Performed By: #### B MP #### [address] [address] Calcium [Mass/Vol] 8.8 mg/dL Normal 8.6 - 10.3 [facility] Comment on above: Performed By: #### B MP #### [address] [address] Chloride [Moles/Vol] 106 mmol/L Normal 98 - 107 [facility] Comment on above: Performed By: #### B MP #### [address] [address] Creatinine [Mass/Vol] 1.28 mg/dL Normal 0.50 - 1.30 [facility] Comment on above: Performed By: #### B MP #### [address] [address] GFR/1.73 sq M.predicted among non-blacks MDRD (S/P/Bld) [Vol rate/Area] 65 mL/min/{1.73_m2} Normal >90 [facility] Comment on above: Result Comment: CALC ULATIONS OF ESTIMATED GFR ARE PERFORMED USING THE 2020 CKD-EPI STUDY REFIT EQUATION WITHOUT THE RACE VARIABLE FOR THE IDMS-TRACEABLE CREATININE METHODS. https://jasn.asnjournals.org/content/early//ASN.180130 5699 Performed By: #### B MP #### [address] [address] Glucose [Mass/Vol] 124 mg/dL High 74 - 99 [facility] Comment on above: Performed By: #### B MP #### [address] [address] HCO3 (Bld) [Moles/Vol] 26 mmol/L Normal 21 - 32 [facility] Comment on above: Performed By: #### B MP #### [address] [address] Potassium [Moles/Vol] 3.3 mmol/L Low 3.5 - 5.3 [facility] Comment on above: Performed By: #### B MP #### [address] [address] Sodium [Moles/Vol] 140 mmol/L Normal 136 - 145 [facility] Comment on above: Performed By: #### B MP #### [address] [address] Urea nitrogen [Mass/Vol] 18 mg/dL Normal 6 - 23 [facility] Comment on above: Performed By: #### B MP #### [address] [address] CBC AND DIFFERENTIALon 02-14 DIFFERENTIAL SEE MANUAL DIFF Normal [facility] Comment on above: Performed By: #### B MP #### [address] [address] Erythrocyte distribution width (RBC) [Ratio] 13.8 % Normal 11.5 - 14.5 [facility] Comment on above: Performed By: #### B MP #### [address] [address] Hematocrit (Bld) [Volume fraction] 40.7 % Low 41.0 - 52.0 [facility] Comment on above: Performed By: #### B MP #### [address] [address] Hemoglobin (Bld) [Mass/Vol] 13.7 g/dL Normal 13.5 - 17.5 [facility] Comment on above: Performed By: #### B MP #### [address] [address] MCHC (RBC) [Mass/Vol] 33.8 g/dL Normal 32.0 - 36.0 [facility] Comment on above: Performed By: #### B MP #### [address] [address] MCV (RBC) [Entitic vol] 92 fL Normal 80 - 100 [facility] Comment on above: Performed By: #### B MP #### [place] [id number] NUCLEATED RBC 0.2 /100 WBC Normal [facility] Comment on above: Performed By: #### B MP #### [address] [address] Platelets (Bld) [#/Vol] 76 10*3/uL Low 150 - 450 [facility] Comment on above: Performed By: #### B MP #### [address] [address] RBC 4.42 x10E12/L Low 4.50 - 5.90 [facility] Comment on above: Performed By: #### B MP #### [address] [address] WBC (Bld) [#/Vol] 3.2 10*3/uL Low 4.4 - 11.3 [facility] Comment on above: Performed By: #### B MP #### [address] [address] CHEST 1 VIEWon 02-14-2022 CHEST 1 VIEW Patient Name: CHIP EMMANUEL STUDY: CHEST 1 VIEW; 02/14/2022 12:38 am INDICATION: cp . COMPARISON: Chest radiograph dated 12/03/2020. ACCESSION NUMBER(S): [id number] ORDERING CLINICIAN: ARDEN PEDRO FINDINGS: CARDIOMEDIASTINAL SILHOUETTE: Cardiomediastinal silhouette is normal in size and configuration. LUNGS/PLEURA: There are no consolidations.There are no pleural effusions. There is no demonstrated pneumothorax. BONES: Visualized osseous structures are intact. IMPRESSION: 1. No evidence of acute cardiopulmonary process. Electronically signed by: KALYAN ACOSTA DO Normal [facility] HEPATIC FUNCTION PANELon Albumin [Mass/Vol] 4.0 g/dL Normal 3.4 - 5.0 [facility] Comment on above: Performed By: #### L IPAS #### [place] [id number] ALP [Catalytic activity/Vol] 71 U/L Normal 33 - 120 [facility] Comment on above: Performed By: #### L IPAS #### [address] [address] ALT [Catalytic activity/Vol] 10 U/L Normal 10 - 52 [facility] Comment on above: Result Comment: Viktoriya ents treated with Sulfasalazine may generate falsely decreased results for ALT. Performed By: #### L IPAS #### [address] [address] AST [Catalytic activity/Vol] 11 U/L Normal 9 - 39 [facility] Comment on above: Performed By: #### L IPAS #### [address] [address] Bilirubin [Mass/Vol] 0.5 mg/dL Normal 0.0 - 1.2 [facility] Comment on above: Performed By: #### L IPAS #### [address] [address] Bilirubin.indirect [Mass/Vol] 0.1 mg/dL Normal 0.0 - 0.3 [facility] Comment on above: Performed By: #### L IPAS #### [address] [address] Protein [Mass/Vol] 6.2 g/dL Low 6.4 - 8.2 [facility] Comment on above: Performed By: #### L IPAS #### [address] [address] LIPASEon 02-14-2022 Lipase [Catalytic activity/Vol] 31 U/L Normal 9 - 82 [facility] Comment on above: Result Comment: Jackie puncture immediately after or during the administration of Metamizole may lead to falsely low results. Testing should be performed immediately prior to Metamizole dosing. D-ttvtdz-a-benzoquinone imine (metabolite of Acetaminophen) will generate erroneously low results in samples for patients that have taken toxic doses of acetaminophen. Performed By: #### L IPAS #### [address] [address] MANUAL DIFFERENTIALon 2021 % BAND NEUTROPHIL 1.0 % Normal 0.0 - 5.0 [facility] Comment on above: Performed By: #### M DIFF #### [address] [address] % BASOPHIL 0.0 % Normal 0.0 - 2.0 [facility] Comment on above: Performed By: #### M DIFF #### [address] [address] % EOSINOPHIL 0.0 % Normal 0.0 - 6.0 [facility] Comment on above: Performed By: #### M DIFF #### [address] [address] % LYMPHOCYTE 13.0 % Normal 13.0 - 44.0 [facility] Comment on above: Performed By: #### M DIFF #### [address] [address] % MONOCYTE 11.0 % Normal 2.0 - 10.0 [facility] Comment on above: Performed By: #### M DIFF #### [address] [address] % SEG NEUTROPHIL 75.0 % Normal 40.0 - 80.0 [facility] Comment on above: Result Comment: Perc ent differential counts (%) should be interpreted in the context of the absolute cell counts (cells/L). Performed By: #### M DIFF #### [address] [address] ANC 2.43 x10E9/L Normal 1.20 - 7.70 [facility] Comment on above: Performed By: #### M DIFF #### [address] [address] BAND NEUTROPHIL 0.03 x10E9/L Normal 0.00 - 0.70 [facility] Comment on above: Performed By: #### M DIFF #### [address] [address] BASOPHIL 0.00 x10E9/L Normal 0.00 - 0.10 [facility] Comment on above: Performed By: #### M DIFF #### [place] [id number] EOSINOPHIL 0.00 x10E9/L Normal 0.00 - 0.70 [facility] Comment on above: Performed By: #### M DIFF #### [place] [address] LYMPHOCYTE 0.42 x10E9/L Low 1.20 - 4.80 [facility] Comment on above: Performed By: #### M DIFF #### [place] [address] MONOCYTE 0.35 x10E9/L Normal 0.10 - 1.00 [facility] Comment on above: Performed By: #### M DIFF #### [place] [id number] SEG NEUTROPHIL 2.40 x10E9/L Normal 1.20 - 7.00 [facility] Comment on above: Performed By: #### M DIFF #### [place] [address] Provider Note - ED v3on 07- Provider Note - ED v3 Provider Note: Chart Review: ED NOTES ED NOTES: HPI: Is a 56-year-old male chief complaint of chest pain. States that he had an energy drink and shortly after he had 10 minutes of left-sided chest discomfort. He called EMS who gave him 4 baby aspirin. He states he rarely drinks energy drinks but he has on occasion. Patient states he is currently asymptomatic. Initial temperature was elevated. It was rechecked without intervention found to be normal. ROS: All systems are negative other than as noted in HPI. Physical Exam I have reviewed the triage vital signs. Const: Well nourished, well developed, appears stated age, no acute distress Eyes: PERRL, EOM intact, no conjunctival injection, vision grossly normal HENT: Neck supple without meningismus , Moist mucous membranes, no pharyengeal swelling or exudate CV: Regular rate and rhythm, Warm, well-perfused extremities. Chest non tender RESP: Lungs clear bilaterally, Unlabored respiratory effort GI: soft, non-tender, non-distended, no masses : MSK: No gross deformities appreciated Skin: Warm, dry. No rashes Neuro: Alert and oriented x4, GCS 15 , respiratory equipment assistant II-XII grossly intact. Sensation and motor function of extremities grossly intact. Psych: Appropriate mood and affect. HISTORY OF PRESENTING ILLNESS CHIP is a 56 year old Male and was seen by me at 14-Feb-2022 00:24 for a chief complaint of chest pain (from [facility] [place] [place] via squad, reports 30mins [employer]ATION [employer] pt drank monster energy drink and had cp and epigastric pain. given 4 baby asa in squad. denies SOB)(1). Triage Information: Most recent Vital Sign Value Date Temp (F): 100.5 02-14-2022 00:20 Temp (C): 38 02-14-2022 00:20 Heart Rate (beats/min): 82 02-14-2022 00:20 Respirations (breaths/min): 17 02-14-2022 00:20 SpO2 (%): 95 02-14-2022 00:20 BP Systolic (mm Hg): 110 02-14-2022 00:20 BP Diastolic (mm Hg): 67 02-14-2022 00:20 PAST MEDICAL HISTORY ALLERGIES/INTOLERANCES: No Known Allergies HEALTH HISTORY: No documented data. OUTPATIENT MEDICATIONS: Home Medications Review Status for Reconciliation: N/A Med Status: Patient Currently Takes Medications Drug Name: OLANZapine Instructions: 1 tab(s) orally once a day (at bedtime) Drug Name: docusate sodium 250 mg oral capsule Instructions: 1 cap(s) orally once a day Drug Name: Vitamin B-100 oral tablet Instructions: 1 tab(s) orally once a day Drug Name: IBU 600 mg oral tablet Instructions: 1 tab(s) orally 3 times a day Drug Name: albuterol 90 mcg/inh inhalation aerosol Instructions: 2 puff(s) inhaled every 4 hours, As Needed -for shortness of breath Drug Name: predniSONE 20 mg oral tablet Instructions: 2 tab(s) orally once a day SIGNIFICANT EVENTS: Immunizations Description:Tdap Past Medical History Description:BIPOLAR Description:SCHIZOPHREMIA Description:ALCOHOL ABUSE CRITICAL CARE RESULTS: Recent Lab Results: I have reviewed these laboratory results: Troponin I, High Sensitivity Trending View [id number] 01:21:00 14-Feb-2022 00:33:00 Troponin I, High Sensitivity6 6 Hepatic Function Panel 14-Feb-2022 00:33:00 ResultValue Aspartate Transaminase, Serum 11 ALB 4.0 T Bili 0.5 Bilirubin, Serum Direct - Conjugated 0.1 ALKP 71 Alanine Aminotransferase, Serum 10 T Pro 6.2 L Complete Blood Count + Differential 14-Feb-2022 00:33:00 ResultValue White Blood Cell Count 3.2 L Nucleated Erythrocyte Count 0.2 Red Blood Cell Count 4.42 L HGB 13.7 HCT 40.7 L MCV 92 MCHC 33.8 PLT 76 L RDW-CV 13.8 Differential Comment SEE MANUAL DIFF Basic Metabolic Panel 14-Feb-2022 00:33:00 ResultValue Glucose, Serum 124 H NA 140 K 3.3 L CL 106 Bicarbonate, Serum 26 Anion Gap, Serum 11 BUN 18 CREAT 1.28 GFR Male 65 Calcium, Serum 8.8 RBC Morphology 14-Feb-2022 00:33:00 ResultValue Red Blood Cell Morphology NORMAL Manual Differential Panel 14-Feb-2022 00:33:00 ResultValue % Seg Neutrophil 75.0 % Band Neutrophil 1.0 % Lymphocyte 13.0 % Monocyte 11.0 % Eosinophil 0.0 % Basophil 0.0 Absolute Neutrophil Count (ANC) 2.43 Seg Neutrophil Count 2.40 Band Neutrophil Count 0.03 Lymphocyte, Count 0.42 L Monocyte, Count 0.35 Eosinophil, Count 0.00 Basophil, Count 0.00 Lipase, Serum 14-Feb-2022 00:33:00 ResultValue Lipase, Serum 31 Radiology Results: Impression: 1. No evidence of acute cardiopulmonary process. Xray Chest 1 View [Feb 14 2022 1:23AM] VITAL SIGNS: T PRBP SpO2O2(LPM) %FiO2 Method 14-Feb-2022 01:30:[id number]/85 96 room air, no respiratory support 14-Feb-2022 00:33:00-37.1 14-Feb-2022 00:20:[id number] 95 room air, no respiratory support 14-Feb-2022 00:16:[id number]/ 95 room air, no respiratory support MDM MDM/ED COURSE: Patient's initial and repeat troponins are negative. PROGRESS NOTE EKG (more content not included)... Normal [facility] RED CELL MORPHOLOGYon 2021 RBC morphology finding Nom (Bld) NORMAL Normal [facility] Comment on above: Performed By: #### B MP #### [place] [id number] [place] [address] Risk Screen - Adult Emergenc yon 02-14-2022 Risk Screen - Adult Emergency Preferred Language: Preferred Language: Preferred Language for Discussing Health Care (patient/designee)Emirati Advanced Directives: Advance Directive/DNRno Family Violence Adult: Abuse Screen: Are you or have you been threatened or abused physically, emotionally, or sexually by anyoneno Learning Assessment (Patient): Learning Assessment (Patient): Patient is Able to be Assessed for Learningyes Factors Influencing Readiness to Learnacuteness of illness Factors that Impact Ability to Learnnone Devices/Methods Used to Communicatenone Learning Preferencesaudio Cultural Considerationsnone Developmental Considerationsnone Presybeterian Considerationsnone Learning Assessment (Other Learner): Learning Assessment (Other Learner): Other learner availableno Pressure Injury/TB/Substance: Pressure Injury: Pressure Injury Present on Admissionno Do you have a coughno Smoking Statusmoderate user (uses 11-30 cig/day, OR 0.5-1.5 ppd, OR 2-3 cans/pouches loose leaf tobacco per week, OR 0.5-1.5 vape pods per day) Tobacco Cessation Education (provide if tobacco use within the last 12 mos) patient declined Alcohol Usedenies Drug Usedenies Admission Risk Screen: Significant IndicatorsComplete CAGE: CAGE: Is this an injured patient [place] a Tra[place] Center [place] [place] no Electronic Signatures: Giancarlo Koch (RN) (Signed 14-Feb-2022 00:25) Authored: Preferred Language, Advanced Directives, Family Violence Adult, Learning Assessment (Patient), Learning Assessment (Other Learner), Pressure Injury/TB/Substance, Pressure Injury, CAGE Last Updated: 14-Feb-2022 00:25 by Giancarlo Koch (NERY) Normal [facility] TROPONIN I, HIGH SENSITIVITY on 02-14-2022 TROPONIN I, HIGH SENSITIVITY 6 ng/L Normal 0 - 20 [facility] Comment on above: Result Comment: . Less than 99th percentile of normal range cutoff- Female and children under 18 years old <14 ng/L; Male <21 ng/L: Negative Repeat testing should be performed if clinically indicated. . Female and children under 18 years old 14-50 ng/L; Male 21-50 ng/L: Consistent with possible cardiac damage and possible increased clinical risk. Serial measurements may help to assess extent of myocardial damage. . >50 ng/L: Consistent with cardiac damage, increased clinical risk and myocardial infarction. Serial measurements may help assess extent of myocardial damage. . NOTE: Children less than 1 year old may have higher baseline troponin levels and results should be interpreted in conjunction with the overall clinical context. . NOTE: Troponin I testing is performed using a different testing methodology at [facility] than at other [facility]. Direct result comparisons should only be made within the same method. Performed By: #### T [facility] #### [place] [id number] [place] [id number] TROPONIN I, HIGH SENSITIVITY 6 ng/L Normal 0 - 20 [facility] Comment on above: Result Comment: . Less than 99th percentile of normal range cutoff- Female and children under 18 years old <14 ng/L; Male <21 ng/L: Negative Repeat testing should be performed if clinically indicated. . Female and children under 18 years old 14-50 ng/L; Male 21-50 ng/L: Consistent with possible cardiac damage and possible increased clinical risk. Serial measurements may help to assess extent of myocardial damage. . >50 ng/L: Consistent with cardiac damage, increased clinical risk and myocardial infarction. Serial measurements may help assess extent of myocardial damage. . NOTE: Children less than 1 year old may have higher baseline troponin levels and results should be interpreted in conjunction with the overall clinical context. . NOTE: Troponin I testing is performed using a different testing methodology at [facility] than at other [facility]. Direct result comparisons should only be made within the same method. 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 given 4 baby asa in squad. denies SOB). Triage Date/Time: 14-Feb-2022 00:16 NEGRA: 3 Pain Rating (0-10): 7 = Severe Vital Signs: Temperature: 100.5F ( 38.0C) taken temporal Blood Pressure: 110/67 Mean: Heart Rate: 82 Respiratory Rate: 17 Pulse Oximetry: 95% on room air, no respiratory support. Height: 5 feet 11.00 inches. 180.3 CM Weight: 200.4 pounds. Calculated 90.9 kg. (stated) Calculated BMI (kg/m2): 27.962 Calculated BSA (m2) 2.13 [place] Coma Scale: Best Eye Response: (E4) spontaneous Best Motor Response: (M6) obeys commands Best Verbal Response: (V5) oriented Bony Score: 15 Allergies: no Patient has homicidal thoughts: no Risk Screens Suicide Risk Screen In the Past Month: Have you wished you were or wished you could go to sleep and not wake up no In the Past Month: Have you had any actual thoughts of killing yourself no In Your Lifetime: Have you ever done anything, started to do anything, or prepared to do anything to end your life no Shook Fall Scale Screening Has the patient fallen before (or is the patient in the ED as a result of a fall) has not had a fall Does the patient have an impaired gait does not have impaired gait Is the patient cognitively impaired not cognitively impaired Interventions: Shook Fall Interventions: MODERATE INTERVENTIONS: *Low Interventions Plus: * falls risk band/sticker applied to patient, *yellow non-skid footwear, *instruct to call for assistance before getting out of bed, *bed/chair/bedside commode/toilet alarms, *sensory devices/ambulatory aides available and in reach, *medications reviewed for potential side effects and care planning. TRAVEL HISTORY Travel History Coronavirus Screening: positive for symptoms Travel Exposure History: NO travel to International locations in the past 30 days PAIN Pain Scale Used: MARYANN Pain Rating (0-10): 7 = Severe Past Medical History: Past Medical History Reviewedyes Electronic Signatures: Giancarlo Koch (RN) (Signed 14-Feb-2022 00:24) Authored: Quick Triage, Risk Screens, Pain, Travel History, Chart Review, Scores, Past Medical History Last Updated: 14-Feb-2022 00:24 by Giancarlo Koch (RN) Normal [facility] CBC AND DIFFERENTIALon 12-26 Basophils (Bld) [#/Vol] 0.00 10*3/uL Normal 0.00 - 0.10 [facility] Comment on above: Performed By: #### C BCDF #### [address] [address] Basophils/100 WBC (Bld) 0.3 % Normal 0.0 - 2.0 [facility] Comment on above: Performed By: #### C BCDF #### [address] [address] Eosinophils (Bld) [#/Vol] 0.10 10*3/uL Normal 0.00 - 0.70 [facility] Comment on above: Performed By: #### C BCDF #### [address] [address] Eosinophils/100 WBC (Bld) 1.6 % Normal 0.0 - 6.0 [facility] Comment on above: Performed By: #### C BCDF #### [address] [address] Erythrocyte distribution width (RBC) [Ratio] 13.7 % Normal 11.5 - 14.5 [facility] Comment on above: Performed By: #### C BCDF #### [address] [address] Hematocrit (Bld) [Volume fraction] 45.9 % Normal 41.0 - 52.0 [facility] Comment on above: Performed By: #### C BCDF #### [address] [address] Hemoglobin (Bld) [Mass/Vol] 15.3 g/dL Normal 13.5 - 17.5 [facility] Comment on above: Performed By: #### C BCDF #### [address] [address] Lymphocytes (Bld) [#/Vol] 1.00 10*3/uL Low 1.20 - 4.80 [facility] Comment on above: Performed By: #### C BCDF #### [address] [address] Lymphocytes/100 WBC (Bld) 20.9 % Normal 13.0 - 44.0 [facility] Comment on above: Performed By: #### C BCDF #### [address] [address] MCHC (RBC) [Mass/Vol] 33.3 g/dL Normal 32.0 - 36.0 [facility] Comment on above: Performed By: #### C BCDF #### [address] [address] MCV (RBC) [Entitic vol] 94 fL Normal 80 - 100 [facility] Comment on above: Performed By: #### C BCDF #### [address] [address] Monocytes (Bld) [#/Vol] 0.40 10*3/uL Normal 0.10 - 1.00 [facility] Comment on above: Performed By: #### C BCDF #### [address] [address] Monocytes/100 WBC (Bld) 8.3 % Normal 2.0 - 10.0 [facility] Comment on above: Performed By: #### C BCDF #### [address] [address] Neutrophils (Bld) [#/Vol] 3.30 10*3/uL Normal 1.20 - 7.70 [facility] Comment on above: Result Comment: Perc ent differential counts (%) should be interpreted in the context of the absolute cell counts (cells/L). Performed By: #### C BCDF #### [address] [address] Neutrophils/100 WBC (Bld) 68.9 % Normal 40.0 - 80.0 [facility] Comment on above: Performed By: #### C BCDF #### [address] [address] NUCLEATED RBC 0.3 /100 WBC Normal [facility] Comment on above: Performed By: #### C BCDF #### [address] [address] Platelets (Bld) [#/Vol] 93 10*3/uL Low 150 - 450 [facility] Comment on above: Performed By: #### C BCDF #### [address] [address] RBC 4.91 x10E12/L Normal 4.50 - 5.90 [facility] Comment on above: Performed By: #### C BCDF #### [address] [address] WBC (Bld) [#/Vol] 4.8 10*3/uL Normal 4.4 - 11.3 [facility] Comment on above: Performed By: #### C BCDF #### [address] [address] COMPREHENSIVE PANELon 2021 Albumin [Mass/Vol] 4.3 g/dL Normal 3.4 - 5.0 [facility] Comment on above: Performed By: #### C MP #### [address] [address] ALP [Catalytic activity/Vol] 86 U/L Normal 33 - 120 [facility] Comment on above: Performed By: #### C MP #### [address] [address] ALT [Catalytic activity/Vol] 11 U/L Normal 10 - 52 [facility] Comment on above: Result Comment: Viktoriya ents treated with Sulfasalazine may generate falsely decreased results for ALT. Performed By: #### C MP #### [address] [address] Anion gap [Moles/Vol] 9 mmol/L Low 10 - 20 [facility] Comment on above: Performed By: #### C MP #### [address] [address] AST [Catalytic activity/Vol] 10 U/L Normal 9 - 39 [facility] Comment on above: Performed By: #### C MP #### [address] [address] Bilirubin [Mass/Vol] 0.7 mg/dL Normal 0.0 - 1.2 [facility] Comment on above: Performed By: #### C MP #### [address] [address] Calcium [Mass/Vol] 9.4 mg/dL Normal 8.6 - 10.3 [facility] Comment on above: Performed By: #### C MP #### [address] [address] Chloride [Moles/Vol] 109 mmol/L High 98 - 107 [facility] Comment on above: Performed By: #### C MP #### [address] [address] Creatinine [Mass/Vol] 1.18 mg/dL Normal 0.50 - 1.30 [facility] Comment on above: Performed By: #### C MP #### [address] [address] GFR/1.73 sq M.predicted among non-blacks MDRD (S/P/Bld) [Vol rate/Area] 71 mL/min/{1.73_m2} Normal >90 [facility] Comment on above: Result Comment: CALC ULATIONS OF ESTIMATED GFR ARE PERFORMED USING THE 2020 CKD-EPI STUDY REFIT EQUATION WITHOUT THE RACE VARIABLE FOR THE IDMS-TRACEABLE CREATININE METHODS. https://jasn.asnjournals.org/content/early/ASN.195074 1769 Performed By: #### C MP #### [address] [address] Glucose [Mass/Vol] 109 mg/dL High 74 - 99 [facility] Comment on above: Performed By: #### C MP #### [address] [address] HCO3 (Bld) [Moles/Vol] 29 mmol/L Normal 21 - 32 [facility] Comment on above: Performed By: #### C MP #### [address] [address] Potassium [Moles/Vol] 4.2 mmol/L Normal 3.5 - 5.3 [facility] Comment on above: Performed By: #### C MP #### [address] [address] Protein [Mass/Vol] 6.6 g/dL Normal 6.4 - 8.2 [facility] Comment on above: Performed By: #### C MP #### [address] [address] Sodium [Moles/Vol] 143 mmol/L Normal 136 - 145 [facility] Comment on above: Performed By: #### C MP #### [address] [address] Urea nitrogen [Mass/Vol] 17 mg/dL Normal 6 - 23 [facility] Comment on above: Performed By: #### C MP #### [address] [address] HEMOGLOBIN A1Con 12-26-2021 Glucose [Mass/Vol] 111 mg/dL Normal [facility] Comment on above: Performed By: #### H BA1E #### [address] [address] HbA1c (Bld) [Mass fraction] 5.5 % Normal [facility] Comment on above: Result Comment: Diag nosis of Diabetes-Adults Non-Diabetic: < or = 5.6% Increased risk for developing diabetes: 5.7-6.4% Diagnostic of diabetes: > or = 6.5% . Monitoring of Diabetes Age (y) Therapeutic Goal (%) Adults: >18 <7.0 Pediatrics: 13-18 <7.5 7-12 <8.0 0- 6 7.5-8.5 [place] [employer]. Diabetes Care 33(S1), Jul 2009. Performed By: #### H BA1E #### [address] [address] LIPID PANEL (CORONARY RISK 2 )on 12-26-2021 Cholesterol [Mass/Vol] 125 mg/dL Normal 0 - 199 [facility] Comment on above: Result Comment: . AGE DESIRABLE BORDERLINE HIGH HIGH 0-19 Y 0 - 169 170 - 199 >/= 200 20-24 Y 0 - 189 190 - 224 >/= 225 >24 Y 0 - 199 200 - 239 >/= 240 All ranges are based on fasting samples. Specific therapeutic targets will vary based on patient-specific cardiac risk. . Pediatric guidelines reference:Pediatrics 2011, 128(S5). Adult guidelines reference: NCEP ATPIII Guidelines, LOS 2001, 258:2486-97 . Venipuncture immediately after or during the administration of Metamizole may lead to falsely low results. Testing should be performed immediately prior to Metamizole dosing. Performed By: #### L IPID #### [address] [address] Cholesterol in HDL [Mass/Vol] 36.0 mg/dL Abnormal [facility] Comment on above: Result Comment: . AGE VERY LOW LOW NORMAL HIGH 0-19 Y < 35 < 40 40-45 ---- 20-24 Y ---- < 40 >45 ---- >24 Y ---- < 40 40-60 >60 . Performed By: #### L IPID #### [address] [address] Cholesterol in LDL [Mass/Vol] 42 mg/dL Normal 0 - 99 [facility] Comment on above: Result Comment: . NEAR BORD AGE DESIRABLE OPTIMAL HIGH HIGH VERY HIGH 0-19 Y 0 - 109 --- 110-129 >/= 130 ---- 20-24 Y 0 - 119 --- 120-159 >/= 160 ---- >24 Y 0 - 99 100-129 130-159 160-189 >/=190 . Performed By: #### L IPID #### [address] [address] Cholesterol in VLDL [Mass/Vol] 47 mg/dL High 0 - 40 [facility] Comment on above: Performed By: #### L IPID #### [address] [address] Cholesterol.total/Cho lesterol in HDL [Mass ratio] 3.5 {ratio} Normal [facility] Comment on above: Result Comment: REF VALUES DESIRABLE < 3.4 HIGH RISK > 5.0 Performed By: #### L IPID #### [address] [address] NON-HDL CHOLESTEROL 89 mg/dL Normal [facility] Comment on above: Result Comment: AGE DESIRABLE BORDERLINE HIGH HIGH VERY HIGH 0-19 Y 0 - 119 120 - 144 >/= 145 >/= 160 20-24 Y 0 - 149 150 - 189 >/= 190 ---- >24 Y 30 MG/DL ABOVE LDL CHOLESTEROL GOAL . Performed By: #### L IPID #### [address] [address] Triglyceride [Mass/Vol] 233 mg/dL High 0 - 149 [facility] Comment on above: Result Comment: . AGE DESIRABLE BORDERLINE HIGH HIGH VERY HIGH 0 D-90 D 19 - 174 ---- ---- ---- 91 D- 9 Y 0 - 74 75 - 99 >/= 100 ---- 10-19 Y 0 - 89 90 - 129 >/= 130 ---- 20-24 Y 0 - 114 115 - 149 >/= 150 ---- >24 Y 0 - 149 150 - 199 200- 499 >/= 500 . Venipuncture immediately after or during the administration of Metamizole may lead to falsely low results. Testing should be performed immediately prior to Metamizole dosing. Performed By: #### L IPID #### [address] [address] MAGNESIUMon 12-26-2021 Magnesium [Mass/Vol] 1.99 mg/dL Normal 1.60 - 2.40 [facility] Comment on above: Performed By: #### M G #### [address] [address] PROSTATE SPECIFIC AGon 12-26 Prostate specific Ag [Mass/Vol] 0.65 ng/mL Normal 0.00 - 4.00 [facility] Comment on above: Result Comment: The FDA requires that the method used for PSA assay be reported to the physician. Values obtained with different assay methods must not be used interchangeably. This test was performed at [facility] using the EQUIP Advantage PSA assay is a two-site immunoenzymatic sandwich assay. The assay is approved for measurement of prostate-specific antigen (PSA)in serum and may be used in conjunction with a digital rectal examination in men 50 years and older as an aid in detection of prostate cancer. 6-Amwfu-vqlomigpm inhibitors (e.g. Proscar, Finasteride, Avodart, Dutasteride and Robina) for the treatment of BPH have been shown to lower PSA levels by an average of 50% after 6 months of treatment. Performed By: #### P SA #### [address] [address] TSHon 12-26-2021 TSH Qn 1.83 m[IU]/L Normal 0.44 - 3.98 [facility] Comment on above: Result Comment: TSH testing is performed using different testing methodology at [facility] than at other [facility]. Direct result comparisons should only be made within the same method. Performed By: #### T SH2 #### [address] [address] VITAMIN B12on 12-26-2021 Cobalamin (Vitamin B12) [Mass/Vol] 323 pg/mL Normal 211 - 911 [facility] Comment on above: Performed By: #### V TB12 #### [address] [address] VITAMIN D, 25-HYDROXYon 12-17 VITAMIN D, 25-HYDROXY 41 ng/mL Normal [facility] Comment on above: Result Comment: . DEFICIENCY: < 20 NG/ML INSUFFICIENCY: 20-29 NG/ML SUFFICIENCY: 30-100 NG/ML THIS ASSAY ACCURATELY QUANTIFIES THE SUM OF VITAMIN D3, 25-HYDROXY AND VIT D2,25-HYDROXY. Performed By: #### V TDOH #### [facility] [address] [place] [address] XR FINGER(S) RIGHT 2+ VIEWSo n 04-30-2020 XR FINGER(S) RIGHT 2+ VIEWS EXAMINATION: XR FINGER(S) RIGHT 2+ VIEWS 04/30/2020 2:36 pm HISTORY: ORDERING SYSTEM PROVIDED HISTORY: Pain, TECHNOLOGIST PROVIDED HISTORY: Injury/Trauma Reason for exam: post-reduction r little finger Cancer History: u Surgery, RadiationHistory: u Encounter Type: Subsequent/Follow-up Mechanism of injury: post-reduction r little finger ORDERING SYSTEM PROVIDED DIAGNOSIS CODES: R52 Pain COMPARISON: 03/29/2020 IMPRESSION: FINDINGS/ Patient is status post reduction of a previously seen 5th PIP dislocation. Along the volar side of the 5th PIP there is a corticated appearing 3 mm calcific fragment which may represent a fracture fragment of unknown donor source, or focus of heterotopic ossification. Mild soft tissue edema at the 5th digit. Workstation ID: [id number] Dictated by: NENO HERNÁNDEZ on WedApr 30, 2020 10:58:56 PM EDT Transcribed by: NENO HERNÁNDEZ on WedApr 30, 2020 10:58:56 PM EDT Finalized by: NENO HERNÁNDEZ on WedApr 30, 2020 10:58:56 PM EDT Normal [facility] Comment on above: Order Comment: Injur y/Trauma or Illness?:Injury/Trauma How long have you had these symptoms (acute/chronic)?:Unknown Reason for exam?:post-reduction r little finger History of cancer?:u Surgeries, chemotherapy, or radiation?:u Type of Exam?:Subsequent/Follow-up Mechanism of injury?:post-reduction r little finger Auto Diffon 10-25-2017 Basophils Auto #/vol (Bld) 0.0 E3/mcL Normal 0.0-0.2 [facility] Comment on above: Order Comment: Order Added by Discern Expert. Performed By: #### 2 [id number] ####RIKA BkmExje6[address] [place] [address] Basophils/100 WBC Auto (Bld) 0.3 % Normal 0.0-2.0 [facility] Comment on above: Order Comment: Order Added by Discern Expert. Performed By: #### 2 [id number] ####RIKA RmtGlar9461 [place] [address] Eos Absolute 0.1 E3/mcL Normal 0.0-0.7 [facility] Comment on above: Order Comment: Order Added by Discern Expert. Performed By: #### 2 [id number] ####RIKA KapoorYiuGxuz[address]74 [place] [address] Eosinophils/100 leukocytes 2.9 % Normal 0.0-11.0 [facility] Comment on above: Order Comment: Order Added by Discern Expert. Performed By: #### 2 [id number] ####RIKA AfmIvuh9914 [place] [address] Lymphocytes 1.5 E3/mcL Normal 1.2-3.4 [facility] Comment on above: Order Comment: Order Added by Discern Expert. Performed By: #### 2 [id number] ####RIKA KapoorXrdJunf8448 [place] [address] Lymphocytes/100 leukocytes 35.9 % Normal 20.0-55.0 [facility] Comment on above: Order Comment: Order Added by Discern Expert. Performed By: #### 2 301222 ####RIKA HonJrcg4356 [place] [address] [place] Absolute 0.4 E3/mcL Normal 0.0-0.7 [facility] Comment on above: Order Comment: Order Added by Discern Expert. Performed By: #### 2 697179 ####RIKA KapoorKfqCqrj3237 [place] [address] Monocytes/100 leukocytes 9.0 % Normal 0.0-10.0 [facility] Comment on above: Order Comment: Order Added by Discern Expert. Performed By: #### 2 405453 ####RIKA MdbNjyg5993 [place] [address] Neutro Absolute 2.2 E3/mcL Normal 1.4-6.5 [facility] Comment on above: Order Comment: Order Added by Discern Expert. Performed By: #### 2 628086 ####RIKA KapoorVmiQtpl1911 [place] [address] Neutro Auto 51.9 % Normal 37.0-75.0 [facility] Comment on above: Order Comment: Order Added by Discern Expert. Performed By: #### 2 [id number] ####RIKA Hickso[address] [place] [id number] CBC w/ Auto Diffon 8 Erythrocyte distribution width Auto Ratio (RBC) 14.0 % Normal 11.5-14.5 [facility] Comment on above: Performed By: #### 2 [id number] ####RIKA [address]so[address] [place] [address] Erythrocytes (RBC) 3.99 E6/mcL Normal 3.90-6.10 [facility] Comment on above: Performed By: #### 2 [id number] ####RIKA [address] [place] [address]5705 Hematocrit (HCT) 41.6 % Low 42.0-52.0 [facility] Comment on above: Performed By: #### 2 977293 ####RIKA [address] [place] [address] Hemoglobin mass conc (Bld) 14.5 g/dL Normal 13.5-18.0 [facility] Comment on above: Performed By: #### 2 590243 ####RIKA [address]so[address] [place] [address] MCH 36.3 pg High 27.0-31.0 [facility] Comment on above: Performed By: #### 2 549131 ####RIKA [address] [place] [address] MCHC mass conc (RBC) 34.9 g/dL Normal 33.0-37.0 [facility] Comment on above: Performed By: #### 2 554353 ####RIKA [address] [place] [address] MCV 104.1 fL High 78.0-100.0 [facility] Comment on above: Performed By: #### 2 [id number] ####RIKA [address] [place] [id number] Platelet mean volume (PMV) 7.7 fL Normal 7.4-11.0 [facility] Comment on above: Performed By: #### 2 690915 ####RIKA [address] [place] [address] Platelets 101 E3/mcL Low 130-400 [facility] Comment on above: Performed By: #### 2 389677 ####IRKA [address]ickso[address] [place] [address] WBC (Leukocytes) 4.3 E3/mcL Normal 3.6-11.0 [facility] Comment on above: Performed By: #### 2 518007 ####RIKA [address]so[address] [place] [address] CMPon 10-25-2017 Alanine aminotransferase (ALT) 12 Int._Unit/L Normal 10-40 [facility] Comment on above: Performed By: #### 2 929560 ####RIKA Cole[address] [place] [address] Albumin 4.0 g/dL Normal 3.2-5.0 [facility] Comment on above: Performed By: #### 2 944888 ####RIKA Cole[address] [place] [address] Albumin/Globulin Ratio 1.5 {ratio} Normal 1.1-1.9 [facility] Comment on above: Performed By: #### 2 444048 ####RIKA KapoorDcpHssb6766 [place] [address] Alk Phos 58 Int._Unit/L Normal 42-121 [facility] Comment on above: Performed By: #### 2 995993 ####RIKA KapoorQteXdse1302 [place] [address] Aspartate aminotransferase (AST) 15 Int._Unit/L Normal 10-42 [facility] Comment on above: Performed By: #### 2 451733 ####RIKA ChnQjjn3805 [place] [address] Bili Total 1.0 mg/dL Normal 0.2-1.0 [facility] Comment on above: Performed By: #### 2 189274 ####RIKA [address] [place] [address] BUN/Creatinine Ratio 15.0 ratio Normal 5.4-30.0 [facility] Comment on above: Performed By: #### 2 663183 ####RIKA NokDmng7834 [place] [address] Creatinine 1.2 mg/dL Normal 0.6-1.3 [facility] Comment on above: Performed By: #### 2 172602 ####RIKA NazSwng7060 [place] [address] Globulin 2.6 g/dL Normal 2.0-4.0 [facility] Comment on above: Performed By: #### 2 231299 ####RIKA AghJqwn4364 [place] [address] Protein 6.6 g/dL Normal 6.4-8.3 [facility] Comment on above: Performed By: #### 2 904078 ####RIKA HmmZnsw0096 [place] [address] Urea nitrogen 18 mg/dL Normal 7-18 [facility] Comment on above: Performed By: #### 2 049435 ####RIKA UjlUyfq9757 [place] [address] Calcium 8.8 mg/dL Normal 8.4-10.2 [facility] Comment on above: Performed By: #### 2 777909 ####RIKA MiwWakd0450 [place] [address] Chloride 102 mmol/L Normal 98-107 [facility] Comment on above: Performed By: #### 2 533360 ####RIKA ZgcNkqu7309 [place] [address] CO2 28.7 mmol/L Normal 24.0-30.0 [facility] Comment on above: Performed By: #### 2 806107 ####RIKA GrcXchn6537 [place] [address] Glucose mass conc 101 mg/dL High 70-99 [facility] Comment on above: Performed By: #### 2 269675 ####RIKA HjtUfbb4495 [place] [address] Potassium molar conc 3.2 mmol/L Low 3.5-5.1 [facility] Comment on above: Performed By: #### 2 [id number] ####RIKARadha ColeJemCgux1648 [place] [address] Sodium 139 mmol/L Normal 136-145 [facility] Comment on above: Performed By: #### 2 506291 ####RIKA MqpJphd7196 [place] [address]5705 SxhZ0tot 10-25-2017 Hemoglobin A1c/Hemoglobin.total mass fraction (Bld) 5.0 % Normal 4.0-6.3 [facility] Comment on above: Performed By: #### 3 [id number] ####RIKA Chemistry Manual X[address]vxiet78[address] [place] [address]5705 Lipid Profileon 10-25-2017 Cholesterol 151 mg/dL Normal 50-200 [facility] Comment on above: Result Comment: TOTA L CHOLEESTEROL: <200 NORMAL 200 - 239 BORDERLINE HIGH >240 HIGH Performed By: #### 3 [id number] ####RIKA KapoorLgjOzhw5493 [place] [address]57[address] Cholesterol in VLDL mass conc 51 mg/dL Normal [facility] Comment on above: Performed By: #### 3 [id number] ####RIKA KapoorOdhYonh8613 [place] [address] HDL Cholesterol 33 mg/dL Low >=41 [facility] Comment on above: Performed By: #### 3 [id number] ####RIKA GnwHqyi0447 [place] [address]5705 LDL Cholesterol 67 mg/dL Normal 0-130 [facility] Comment on above: Result Comment: <100 [id number] NEAR / ABOVE [id number] BORDERLINE [id number] HIGH>190 VERY HIGHCALC LDL NOT VALID WHEN TRIGLYCERIDE IS >400 MG/DL Performed By: #### 3 [id number] ####RIKA IkmIwgh2326 [place] [address] Triglyceride 255 mg/dL High 35-150 [facility] Comment on above: Result Comment: <150 [id number] BORDERLINE [id number] HIGH>500 VERY HIGH Performed By: #### 3 [id number] ####RIKA FvbXkyj5241 [place] [address] TSHon 10-25-2017 Thyroid stimulating hormone (TSH) 1.05 mIU/m Normal 0.30-5.60 [facility] Comment on above: Performed By: #### 2 [id number] ####RIKA Aetpmemz7978 [place] [address] eGFRon 10-25-2017 eGFR (non-black) mL/min/{1.73_m2} Normal [facility] Comment on above: Order Comment: Order added by Discern Expert. Performed By: #### 1 [id number] ####RIKA FgsVsmo6009 [place] [address] Vital Signs Date Time Vital Sign Value Performing Clinician Facility 10-31-2024 12:50-0400 Diastolic blood pressure 73 mm[Hg] [address] 10-31-2024 12:50-0400 Heart rate 63 /min [address] 10-31-2024 12:50-0400 Respiratory rate 18 /min [address] 10-31-2024 12:50-0400 SaO2% (BldA) [Mass fraction] 96 % [address] 10-31-2024 12:50-0400 Systolic blood pressure 108 mm[Hg] [address] 10-31-2024 11:58-0400 Body temperature 97.59 [degF] [address] 10-31-2024 10:42-0400 Body mass index (BMI) [Ratio] 29.76 kg/m2 [address] 10-31-2024 10:42-0400 Body weight 86.[address] 10-31-2024 10:41-0400 Body height 170.[address] 09-02-2024 16:00-0500 Diastolic blood pressure 75 mm[Hg] Je Rudd DO Work Phone: [facility] 09-02-2024 16:00-0500 Heart rate 63 /min Je Rudd DO Work Phone: [facility] 09-02-2024 16:00-0500 Respiratory rate 16 /min Je Rudd DO Work Phone: [facility] 09-02-2024 16:00-0500 SaO2% (BldA) [Mass fraction] 96 % Je Rudd DO Work Phone: [facility] 09-02-2024 16:00-0500 Systolic blood pressure 111 mm[Hg] Je Rudd DO Work Phone: [facility] 09-02-2024 13:22-0500 Body temperature 98.91 [degF] Je Rudd DO Work Phone: [facility] 09-02-2024 13:22-0500 Body weight 95.25 kg Je Rudd DO Work Phone: [facility] 02-14-2022 05:10-0400 Diastolic blood pressure 70 mm[Hg] Radhika Yates Other Phone: [facility] 02-14-2022 05:10-0400 Heart rate 80 /min Radhika Yates Other Phone: [facility] 02-14-2022 05:10-0400 Respiratory rate 16 /min Radhika Yates Other Phone: [facility] 02-14-2022 05:10-0400 SaO2% (BldA) [Mass fraction] 96 % Radhika Yates Other Phone: [facility] 02-14-2022 05:10-0400 Systolic blood pressure 110 mm[Hg] Radhika Yates Other Phone: [facility] 02-14-2022 02:33-0400 Body temperature 98.78 [degF] Radhika Yates Other Phone: [facility] 02-14-2022 02:20-0400 Body height 180.3 cm Radhika Yates Other Phone: [facility] 02-14-2022 02:20-0400 Body weight 90.9 kg Radhika Yates Other Phone: [facility] 12-04-2020 06:00-0400 Diastolic blood pressure 67 mm[Hg] Arden Pedro Other Phone: [facility] 12-04-2020 06:00-0400 Heart rate 94 /min Arden Pedro Other Phone: [facility] 12-04-2020 06:00-0400 SaO2% (BldA) [Mass fraction] 94 % Arden Pedro Other Phone: [facility] 12-04-2020 06:00-0400 Systolic blood pressure 105 mm[Hg] Arden Pedro Other Phone: [facility] 12-04-2020 05:15-0400 Respiratory rate 16 /min Arden Pedro Other Phone: [facility] 04-30-2020 15:14-0400 BMI (Body Mass Index) 27.75 kg/m2 Je [facility] 04-30-2020 15:14-0400 Body weight 90.27 kg [facility] 04-30-2020 15:14-0400 Height 180.3 [address] [facility] Encounters Encounter Date Encounter Type Care Provider Facility Start: 12-22-2024 ambulatory Valentina Nemesio [facility] Fa cility:[facility] Start: 10-31-2024 End: 10-31-2024 Subsequent hospital visit by physician Poornima Prater DO Work Phone: [facility] [place] Comment on above: Colon cancer screeni ng Start: 10-31-2024 End: 10-31-2024 ambulatory POORNIMA PRATER [facility] Start: 09-27-2024 Encounter for genera l adult medical examination without abnormal findings Valentina Herr [facility] Start: 09-13-2024 End: 09-13-2024 ambulatory Valentina Herr NP-C Work Phone: [facility] Work Phone: Start: 09-13-2024 End: 09-13-2024 Patient encounter procedure [facility] Valentina BELLEC -Natalie, Racheal Nolan Start: 09-13-2024 End: 09-13-2024 ambulatory Valentina Herr [facility] Facility:[facility] Start: 09-02-2024 End: 09-02-2024 Emergency department patient visit Je Rudd DO Work Phone: [facility] Comment on above: Other constipation ( Primary Dx) Start: 08-18-2023 End: 08-18-2023 ambulatory [facility] Work Phone: Start: 08-18-2023 End: 08-18-2023 Patient encounter procedure [facility] Scan, [facility] Work Phone: Start: 09-03-2022 End: 09-03-2022 Patient encounter procedure Jason Soliz OD Work Phone: Optometry Comment on above: Presbyopia (Primary Dx); Regular astigmatism, bilateral; Hyperopia, bilateral; Senile nuclear cataract, bilateral; Alternating exotropia Start: 03-02-2022 End: 03-03-2022 Emergency department patient visit Arden Leo [facility] 05 Start: 02-14-2022 End: 02-14-2022 Emergency department patient visit Arden Leo [facility] 02 Start: 12-04-2020 End: 12-04-2020 Emergency department patient visit Arden Leo [facility] 16 Start: 09-24-2020 End: 09-24-2020 Orders Only Darcie Yola Lord Work Phone: [facility] Start: 04-30-2020 End: 05-04-2020 Patient encounter procedure JE NI [facility] Start: 04-30-2020 End: 04-30-2020 Office outpatient new 20 minutes Je Ni Work Phone: [facility] Comment on above: Closed dislocation o f interphalangeal joint of right little finger (Primary Dx) Start: 10-25-2017 End: 10-26-2017 Ambulatory Lin Stewart Facility:[facility] Procedures Date Procedure Procedure Detail Performing Clinician Start: 10-31-2024 Colsc flx w/rmvl of tumor polyp lesion snare tq Poornima Prater DO Work Phone: Start: 10-31-2024 PULSE OXIMETRY, SPOT Da le David Prater DO Work Phone: Start: 10-31-2024 Colonoscopy Tim 04 Start: 09-02-2024 Radiologic exam comp lete acute abdomen series Je Rudd DO Work Phone: Start: 08-18-2023 CT of chest Start: 03-02-2022 Antibody screen Comment on above: Performed By: #### T +S #### [facility] [address] [place] [address] Start: 03-02-2022 End: 03-02-2022 EKG impression Arden Pedro Start: 02-14-2022 End: 02-14-2022 EKG impression Arden Pedro Start: 12-26-2021 Lipid 1996 panel - S lily or Plasma Je Rudd DO Work Phone: Start: 12-26-2021 Thyrotropin [Units/v olume] in Serum or Plasma Je Rudd DO Work Phone: Start: 12-04-2020 End: 12-04-2020 EKG impression Arden Pedro Plan of Treatment Date Care Activity Detail Author Start: 03-29-2030 DTaP/Tdap/Td Vaccine s (2 - Td or Tdap) DTaP/Tdap/Td Vaccines (2 - Td or Tdap) [facility] Start: 10-30-2029 Screening for malign ant neoplasm of colon [facility] Start: 12-26-2026 Lipid panel Lipid Panel [facility] Start: 06-30-2026 Diabetes mellitus screening Diabetes Screening [facility] Start: 2023 RSV High Risk: (Elde rly (60+) or Population) (1 - Risk 60-74 years 1-dose series) RSV High Risk: (Elderly (60+) or Population) (1 - Risk 60-74 years 1-dose series) [facility] Start: 12-26-2022 Thyroid stimulating hormone measurement TSH Level [facility] Start: 07-19-2022 DEPRESSION ASSESSMENT DEPRESSION ASS ESSMENT [facility] Start: 03-19-2022 Influenza vaccination INFLUENZA (#1) [facility] Start: 10-28-2021 COVID-19 VACCINE (4 - Booster for Pfizer series) COVID-19 VACCINE (4 - Booster for Pfizer series) [facility] Start: 03-19-2020 Influenza vaccinatio n given Sequential Influenza Vaccine (#1) [facility] Start: 2018 PROSTATE CANCER SCREENING DISCUSSION PROSTATE CANCER SCREENING DISCUSSION [facility] Start: 04-26-2015 Pneumococcal vaccination Pneum ococcal Vaccine (2 of 2 - PCV) [facility] Start: 2013 Administration of he rpes zoster vaccine Zoster Vaccines (1 of 2) [facility] Start: 2013 Screening for malign ant neoplasm of colon [facility] Start: 2013 Screening for malign ant neoplasm of lung Lung Cancer Screening [facility] Start: 2013 SHINGRIX VACCINE (1 of 2) SHINGRIX VACCINE (1 of 2) [facility] Start: 2013 Zoster Vaccines (1 of 2) Zoste r Vaccines (1 of 2) [facility] Start: 2008 COLOGUARD (FIT-DNA) COLOGUARD (FIT-D NA) [facility] Start: 2008 Colonoscopy COLONOSCOPY [facility] Start: 2008 COLORECTAL CANCER SCREENING COLORECTAL CANCER SCREENING [facility] Start: [address] COLONOGRAPHY [facility] Start: 2008 DIABETES SCREEN DIABETES SCREEN [facility] Start: 2008 FECAL OCCULT BLOOD FECAL OCCULT BLOO D [facility] Start: 2008 SIGMOIDOSCOPY SIGMOIDOSCOPY [facility] Start: 1998 LIPID SCREEN LIPID SCREEN [facility] Start: 1982 Urine microalbumin profile DTAP,TDAP,TD (1 - Tdap) [facility] Start: 1981 Hepatitis C antibody , confirmatory test Hepatitis C Screening [facility] Start: 1981 HEPATITIS C SCREENING HEPATITIS C SC [facility] Start: 1981 Hepatitis C screening Hepatitis C [facility] Start: 1981 HIV SCREENING HIV SCREENING [facility] Start: 1979 COVID-19 Vaccine (1 of 2) COVID-19 Vaccine (1 of 2) [facility] Start: 1978 HIV screening HIV Screening [facility] Start: 1975 Adolescent depressio n screening assessment Depression Screening (PHQ9) [facility] Start: 1969 PNEUMOCOCCAL (1 - PCV) PNEUMOCOCCAL (1 - PCV) [facility] Start: 1966 History and physical examination, annual for health maintenance Wellness Visit [facility] Start: 1964 MMR Vaccines (1 of 1 - Standard series) MMR Vaccines (1 of 1 - Standard series) [facility] Start: 1963 HIV screening HIV Screening [facility] Start: 1963 Medicare Annual Well ness Visit Medicare Annual Wellness Visit (AWV) [facility] Start: 1963 Prostate specific antigen measurement PSA Level [facility] Start: 1963 Screening for malign ant neoplasm of colon [facility] Start: 1963 Tetanus vaccination Tetanus: Every 1 0yrs [facility] End: 10-31-2024 Moderate Sedation Moderate Sedation Procedures Routine Once for 1 Occurrences starting 10/31/2024 until 10/31/2024 [facility] Service Area Work Phone: Comment on above: Once for 1 Occurrenc es starting 10/31/2024 until 10/31/2024 End: 10-31-2024 Pulse oximetry, continuous Pulse oximetry, continuous Respiratory Care Routine Continuous until discontinued starting 10/31/2024 [facility] Work Phone: Comment on above: Continuous until dis continued starting 10/31/2024 Surgical pathology study [facility] Work Phone: Comment on above: Release Upon Orderin g for 1 Occurrences starting 10/31/2024 Payers Date Payer Category Payer Self-pay 2020 Medicaid [place] [id number] 2020-Present [id number] 2017 Medicaid [id number] 2017 Medicaid [id number] 1990 Medicare 1990 Medicare MEDICARE MEDICAR E PART A & B [id number] 1990-Present [place] [id number] 1990 Medicare [id number] 1965 Unknown [id number] 1965 Unknown [id number] 1965 Unknown [id number] 1965 Unknown [id number] Unknown Unknown [id number] Unknown [id number] Social History Date Type Detail Facility Start: 10-31-1974 End: 10-31-2024 Tobacco smoking status NHIS Current every day smoker [facility] Start: 04-30-2020 End: 10-31-2024 Tobacco use and exposure Never used [facility] Start: 04-30-2020 End: 10-31-2024 Alcohol intake Ex-drinker (finding) [facility] Start: 1965 Sex Assigned At Not on file [facility] Start: 08-23-2024 End: 10-31-2024 Exposure to SARS-CoV-2 (event) Not sure [facility] Start: 12-04-2020 Heavy tobacco smoker [facility] Tobacco smoking consumption unknown [facility] Start: 10-31-1974 History of tobacco use Cigarette Smo ker [facility] Start: 09-03-2022 Tobacco use and exposure User of smokeless tobacco [facility] Start: 1965 Sex Assigned At Male [facility] Start: 09-02-2024 Tobacco smoking stat us NHIS Never smoked tobacco [facility] Work Phone: Start: 09-02-2024 Alcoholic beverage intake Lifetime non-drinker (finding) [facility] Work Phone: Start: 09-02-2024 End: 10-31-2024 History of Social function [facility] Work Phone: Start: 09-02-2024 End: 10-31-2024 Tobacco use panel [facility] Work Phone: Start: 09-27-2024 Sex Male (finding) [facility] Clinical Notes 09-03-2022 to 10-31-2024 Discharge InstructionsAttaGilmer Prater, DO - 10/31/2024 11:20 AM EDLeighton Prater, DO - 10/31/2024 11:20 AM EDNivia Rudd, DO - 09/02/2024 2:05 PM ESTPatient Instructions Note Date & Type Note Facility 10-31-2024 Hospital Discharge instructions Shelley Mckeon RN - 10/31/2024 12:12 PM EDT Patient Instructions after a Colonoscopy The anesthetics, sedatives or narcotics which were given to you today will be acting in your body for the next 24 hours, so you might feel a little sleepy or groggy. This feeling should slowly wear off. Carefully read and follow the instructions. You received sedation today: - Do not drive or operate any machinery or power tools of any kind. - No alcoholic beverages today, not even beer or wine. - Do not make any important decisions or sign any legal documents. - No over the counter medications that contain alcohol or that may cause drowsiness. - Do not make any important decisions or sign any legal documents. - Make sure you have someone with you for first 24 hours. While it is common to experience mild to moderate abdominal distention, gas, or belching after your procedure, if any of these symptoms occur following discharge from the GI Lab or within one week of having your procedure, call the [facility] to be advised whether a visit to your nearest Urgent Care or Emergency Department is indicated. Take this paper with you if you go. - If you develop an allergic reaction to the medications that were given during your procedure such as difficulty breathing, rash, hives, severe nausea, vomiting or lightheadedness. - If you experience chest pain, shortness of breath, severe abdominal pain, fevers and chills. -If you develop signs and symptoms of bleeding such as blood in your spit, if your stools turn black, tarry, or bloody - If you have not urinated within 8 hours following your procedure. - If your IV site becomes painful, red, inflamed, or looks infected. If you received a biopsy/polypectomy/sphincteroto my the following instructions apply below: __ Do not use Aspirin containing products, non-steroidal medications or anti-coagulants for one week following your procedure. (Examples of these types of medications are: Advil, Arthrotec, Aleve, Coumadin, Ecotrin, Heparin, Ibuprofen, Indocin, Motrin, Naprosyn, Nuprin, Plavix, Vioxx, and Voltarin, or their generic forms. This list is not all-inclusive. Check with your physician or pharmacist before resuming medications.) __ Eat a soft diet today. Avoid foods that are poorly digested for the next 24 hours. These foods would include: nuts, beans, lettuce, red meats, and fried foods. Start with liquids and advance your diet as tolerated, gradually work up to eating solids. __ Do not have a Barium Study or Enema for one week. Your physician recommends the additional following instructions: -You have a contact number available for emergencies. The signs and symptoms of potential delayed complications were discussed with you. You may return to normal activities tomorrow. -Resume your previous diet. -Continue your present medications. -We are waiting for your pathology results. -Your physician has recommended a repeat colonoscopy (date to be determined after pending pathology results are reviewed) for surveillance based on pathology results. -The findings and recommendations have been discussed with you. -The findings and recommendations were discussed with your family. - Please see Medication Reconciliation Form for new medication/medications prescribed. If you experience any problems or have any questions following discharge from the GI Lab, please call: Nurse Signature Date Patient/Responsible Green Party Signature Date The following attachments cannot be sent through Care Everywhere.Moderate Sedation in Adults Discharge Instructions (Emirati)documented in this encounter [facility] Work Phone: 10-31-2024 History and physical note History Of Present Illness Chip Emmanuel is a 59 y.o. male presenting with colon cancer screening. Past Medical History History reviewed. No pertinent past medical history. Surgical History History reviewed. No pertinent surgical history. Social History He reports that he has been smoking cigarettes. He started smoking about 50 years ago. He has a 50 pack-year smoking history. He has never used smokeless tobacco. He reports that he does not currently use alcohol. He reports current drug use. Drug: Marijuana. Family History No family history on file. Allergies No Known Allergies Review of Systems Pre-sedation Evaluation: ASA Classification - ASA 2 - Patient with mild systemic disease with no functional limitations Mallampati Score - II (hard and soft palate, upper portion of tonsils and uvula visible) Physical Exam Vitals and nursing note reviewed. Constitutional: Appearance: Normal appearance. HENT: Head: Normocephalic. Mouth/Throat: Mouth: Mucous membranes are moist. Pharynx: Oropharynx is clear. Eyes: Pupils: Pupils are equal, round, and reactive to light. Cardiovascular: Rate and Rhythm: Normal rate and regular rhythm. Heart sounds: Normal heart sounds. Pulmonary: Effort: Pulmonary effort is normal. Breath sounds: Normal breath sounds. Abdominal: General: Abdomen is flat. Bowel sounds are normal. Palpations: Abdomen is soft. Musculoskeletal: General: Normal range of motion. Cervical back: Normal range of motion and neck supple. Skin: General: Skin is warm and dry. Neurological: General: No focal deficit present. Mental Status: He is alert and oriented to person, place, and time. Psychiatric: Mood and Affect: Mood normal. Behavior: Behavior normal. Last Recorded Vitals Height 1.702 m (5' 7), weight 86.2 kg (190 lb 0.6 oz). 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 benztropine (Cogentin) 2 mg tablet Take 0.5 tablets (1 mg) by mouth 2 times a day. cholecalciferol (Vitamin D-3) 50 MCG (2000 UT) tablet Take 1 tablet (2,000 Units) by mouth once daily. cyanocobalamin (Vitamin B-12) 1,000 mcg tablet Take 1 tablet (1,000 mcg) by mouth once daily. docusate sodium (Colace) 100 mg capsule Take 1 capsule (100 mg) by mouth 2 times a day. haloperidol (Haldol) 2 mg tablet Take 1 tablet (2 mg) by mouth once daily. WITH 5 MG haloperidol (Haldol) 5 mg tablet Take 1 tablet (5 mg) by mouth once daily. haloperidol decanoate (Haldol Decanoate) 100 mg/mL injection Inject 1 mL (100 mg) into the muscle every 28 (twenty-eight) days. levothyroxine (Synthroid, Levoxyl) 150 mcg tablet Take 1 tablet (150 mcg) by mouth early in the morning.. OLANZapine (ZyPREXA) 20 mg tablet Take 1 tablet (20 mg) by mouth once daily at bedtime. potassium chloride CR 10 mEq ER tablet Take 1 tablet (10 mEq) by mouth once daily. propranolol LA (Inderal LA) 80 mg 24 hr capsule Take 1 capsule (80 mg) by mouth once daily. rosuvastatin (Crestor) 5 mg tablet Take 1 tablet (5 mg) by mouth once daily. albuterol 90 mcg/actuation inhaler Inhale 2 puffs every 4 hours if needed. Current Facility-Administered Medications Medication Dose Route Frequency Provider Last Rate Last Admin lactated Ringer's infusion 50 mL/hr intravenous Continuous DO Poornima Menezes DO [facility] Work Phone: 10-31-2024 History and physical note History Of Present Illness Chip Emmanuel is a 59 y.o. male presenting with colon cancer screening. Past Medical History History reviewed. No pertinent past medical history. Surgical History History reviewed. No pertinent surgical history. Social History He reports that he has been smoking cigarettes. He started smoking about 50 years ago. He has a 50 pack-year smoking history. He has never used smokeless tobacco. He reports that he does not currently use alcohol. He reports current drug use. Drug: Marijuana. Family History No family history on file. Allergies No Known Allergies Review of Systems Pre-sedation Evaluation: ASA Classification - ASA 2 - Patient with mild systemic disease with no functional limitations Mallampati Score - II (hard and soft palate, upper portion of tonsils and uvula visible) Physical Exam Vitals and nursing note reviewed. Constitutional: Appearance: Normal appearance. HENT: Head: Normocephalic. Mouth/Throat: Mouth: Mucous membranes are moist. Pharynx: Oropharynx is clear. Eyes: Pupils: Pupils are equal, round, and reactive to light. Cardiovascular: Rate and Rhythm: Normal rate and regular rhythm. Heart sounds: Normal heart sounds. Pulmonary: Effort: Pulmonary effort is normal. Breath sounds: Normal breath sounds. Abdominal: General: Abdomen is flat. Bowel sounds are normal. Palpations: Abdomen is soft. Musculoskeletal: General: Normal range of motion. Cervical back: Normal range of motion and neck supple. Skin: General: Skin is warm and dry. Neurological: General: No focal deficit present. Mental Status: He is alert and oriented to person, place, and time. Psychiatric: Mood and Affect: Mood normal. Behavior: Behavior normal. Last Recorded Vitals Height 1.702 m (5' 7), weight 86.2 kg (190 lb 0.6 oz). 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 benztropine (Cogentin) 2 mg tablet Take 0.5 tablets (1 mg) by mouth 2 times a day. cholecalciferol (Vitamin D-3) 50 MCG (2000 UT) tablet Take 1 tablet (2,000 Units) by mouth once daily. cyanocobalamin (Vitamin B-12) 1,000 mcg tablet Take 1 tablet (1,000 mcg) by mouth once daily. docusate sodium (Colace) 100 mg capsule Take 1 capsule (100 mg) by mouth 2 times a day. haloperidol (Haldol) 2 mg tablet Take 1 tablet (2 mg) by mouth once daily. WITH 5 MG haloperidol (Haldol) 5 mg tablet Take 1 tablet (5 mg) by mouth once daily. haloperidol decanoate (Haldol Decanoate) 100 mg/mL injection Inject 1 mL (100 mg) into the muscle every 28 (twenty-eight) days. levothyroxine (Synthroid, Levoxyl) 150 mcg tablet Take 1 tablet (150 mcg) by mouth early in the morning.. OLANZapine (ZyPREXA) 20 mg tablet Take 1 tablet (20 mg) by mouth once daily at bedtime. potassium chloride CR 10 mEq ER tablet Take 1 tablet (10 mEq) by mouth once daily. propranolol LA (Inderal LA) 80 mg 24 hr capsule Take 1 capsule (80 mg) by mouth once daily. rosuvastatin (Crestor) 5 mg tablet Take 1 tablet (5 mg) by mouth once daily. albuterol 90 mcg/actuation inhaler Inhale 2 puffs every 4 hours if needed. Current Facility-Administered Medications Medication Dose Route Frequency Provider Last Rate Last Admin lactated Ringer's infusion 50 mL/hr intravenous Continuous DO Poornima Menezes DO documented in this encounter [facility] Work Phone: 09-02-2024 Physician Emergency department Note HPI Chief Complaint Patient presents with Abdominal Pain RLQ abdominal pain onset 30 mins ago. BM last week + bright red blood. Passing gas. Patient presents to the emergency department secondary to concerns for constipation. He states I cannot go #2 for a week. When I ask him if he has taken anything [id number] to help with his symptoms he states I took the red pill a couple days ago. He is unsure what the medication was. History provided by: Patient interpreter deaf used: No Patient History History reviewed. No pertinent past medical history. History reviewed. No pertinent surgical history. No family history on file. Social History Tobacco Use Smoking status: Never Smokeless tobacco: Never Substance Use Topics Alcohol use: Never Drug use: Never Physical Exam ED Triage Vitals [09/02/24 1322] Temperature Heart Rate Respirations BP 37.2 C (98.9 F) 65 16 95/73 Pulse Ox Temp Source Heart Rate Source Patient Position 96 % Oral -- -- BP Location FiO2 (%) -- -- Physical Exam Vitals and nursing note reviewed. Constitutional: General: He is not in acute distress. Appearance: Normal appearance. He is normal weight. He is not ill-appearing, toxic-appearing or diaphoretic. Comments: Resting comfortably. Not in any acute distress. Not displaying renal colic. HENT: Head: Normocephalic and atraumatic. Nose: Nose normal. No rhinorrhea. Neck: Comments: Trachea is midline Cardiovascular: Rate and Rhythm: Normal rate and regular rhythm. Heart sounds: No murmur heard. Pulmonary: Effort: Pulmonary effort is normal. Breath sounds: Normal breath sounds. No wheezing. Abdominal: General: Abdomen is flat. Bowel sounds are normal. There is no distension. Palpations: Abdomen is soft. Tenderness: There is no abdominal tenderness. Genitourinary: Comments: Digital rectal exam performed by myself reveals a large amount of hard palpable stool that is superior in the rectal vault. Due to the size of the stool and dislocation it was not able to be disimpacted. No other abnormalities identified. Stool is light brown in color without evidence of gross blood Musculoskeletal: General: Normal range of motion. Cervical back: Normal range of motion. Skin: General: Skin is warm and dry. Findings: No rash. Neurological: General: No focal deficit present. Mental Status: He is alert and oriented to person, place, and time. Mental status is at baseline. Psychiatric: Mood and Affect: Mood normal. Behavior: Behavior normal. Thought Content: Thought content normal. Judgment: Judgment normal. ED Course & MDM No data recorded [place] Coma Scale Score: 15 (09/02/24 1323 : Rita Castillo RN) Medical Decision Making Patient's presentation is consistent with simple constipation. Patient was given an enema here and noted to have successful results with a large bowel movement and resolution of his symptoms. Patient will be discharged home with supportive care instructions regarding constipation. Primary care follow-up and return if worse Procedure Procedures Je Rudd DO 09/02/24 [id number] [facility] Work Phone: 09-02-2024 Emergency department Note HPI Chief Complaint Patient presents with Abdominal Pain RLQ abdominal pain onset 30 mins ago. BM last week + bright red blood. Passing gas. Patient presents to the emergency department secondary to concerns for constipation. He states I cannot go #2 for a week. When I ask him if he has taken anything [id number] to help with his symptoms he states I took the red pill a couple days ago. He is unsure what the medication was. History provided by: Patient interpreter deaf used: No Patient History History reviewed. No pertinent past medical history. History reviewed. No pertinent surgical history. No family history on file. Social History Tobacco Use Smoking status: Never Smokeless tobacco: Never Substance Use Topics Alcohol use: Never Drug use: Never Physical Exam ED Triage Vitals [09/02/24 1322] Temperature Heart Rate Respirations BP 37.2 C (98.9 F) 65 16 95/73 Pulse Ox Temp Source Heart Rate Source Patient Position 96 % Oral -- -- BP Location FiO2 (%) -- -- Physical Exam Vitals and nursing note reviewed. Constitutional: General: He is not in acute distress. Appearance: Normal appearance. He is normal weight. He is not ill-appearing, toxic-appearing or diaphoretic. Comments: Resting comfortably. Not in any acute distress. Not displaying renal colic. HENT: Head: Normocephalic and atraumatic. Nose: Nose normal. No rhinorrhea. Neck: Comments: Trachea is midline Cardiovascular: Rate and Rhythm: Normal rate and regular rhythm. Heart sounds: No murmur heard. Pulmonary: Effort: Pulmonary effort is normal. Breath sounds: Normal breath sounds. No wheezing. Abdominal: General: Abdomen is flat. Bowel sounds are normal. There is no distension. Palpations: Abdomen is soft. Tenderness: There is no abdominal tenderness. Genitourinary: Comments: Digital rectal exam performed by myself reveals a large amount of hard palpable stool that is superior in the rectal vault. Due to the size of the stool and dislocation it was not able to be disimpacted. No other abnormalities identified. Stool is light brown in color without evidence of gross blood Musculoskeletal: General: Normal range of motion. Cervical back: Normal range of motion. Skin: General: Skin is warm and dry. Findings: No rash. Neurological: General: No focal deficit present. Mental Status: He is alert and oriented to person, place, and time. Mental status is at baseline. Psychiatric: Mood and Affect: Mood normal. Behavior: Behavior normal. Thought Content: Thought content normal. Judgment: Judgment normal. ED Course & MDM No data recorded [place] Coma Scale Score: 15 (09/02/24 1323 : Rita Castillo RN) Medical Decision Making Patient's presentation is consistent with simple constipation. Patient was given an enema here and noted to have successful results with a large bowel movement and resolution of his symptoms. Patient will be discharged home with supportive care instructions regarding constipation. Primary care follow-up and return if worse Procedure Procedures Je Rudd DO 09/02/24 1646 documented in this encounter [facility] Work Phone: 09-03-2022 Instructions Jason Soliz II, OD - 09/03/2022 9:21 AM EST Assessment and Plan H52.4 Presbyopia (primary encounter diagnosis) H52.223 Regular astigmatism, bilateral H52.03 Hyperopia, bilateral Comment: Recommend glasses to maximize visual performance. H25.13 Senile nuclear cataract, bilateral Comment: Mild cataract in both eyes. Well tolerated at this time. Discussed possible future affect on daily activities to watch for. Monitor as instructed. H50.15 Alternating exotropia Comment: No diplopia reported. No history of Extraocular muscle surgery or patching. I have confirmed and edited as necessary the relevant ophthalmic history, ROS, and the neuro exam findings as obtained by others. I have seen and examined Chip Emmanuel. I have discussed the case and the management of this patient's care with the Resident/Fellow, if applicable. I also have reviewed and agree with the assessment and plan as stated above and agree with all of its relevant components. Jason Soliz II, OD documented in this encounter [facility] 09-03-2022 History of Present illness Narrative Assessment and Plan H52.4 Presbyopia (primary encounter diagnosis) H52.223 Regular astigmatism, bilateral H52.03 Hyperopia, bilateral Comment: Recommend glasses to maximize visual performance. H25.13 Senile nuclear cataract, bilateral Comment: Mild cataract in both eyes. Well tolerated at this time. Discussed possible future affect on daily activities to watch for. Monitor as instructed. H50.15 Alternating exotropia Comment: No diplopia reported. No history of Extraocular muscle surgery or patching. I have confirmed and edited as necessary the relevant ophthalmic history, ROS, and the neuro exam findings as obtained by others. I have seen and examined Chip Emmanuel. I have discussed the case and the management of this patient's care with the Resident/Fellow, if applicable. I also have reviewed and agree with the assessment and plan as stated above and agree with all of its relevant components. Jason Soliz II, OD documented in this encounter [facility] Evaluation note Diagnosis Presbyopia- Primary Regular astigmatism, bilateral Hyperopia, bilateral Senile nuclear cataract, bilateral Alternating exotropia [facility] noteNo assessment information availableWC[facility] Work Phone: Evaluation note* Diagnosis Other constipation- Primary documented in this encounter [facility] Work Phone: Evaluation note* Diagnosis Colon cancer screening Special screening for malignant neoplasms, colon documented in this encounter [facility] Work Phone: Hospital Discharge instructions* Attachments The following attachments cannot be sent through Care Everywhere. * Constipation in adults (Emirati) [facility] Reason for referral (narrative)No reason for referral information availableWCleveland Clinic Avon [facility] Work Phone: Reason for visit Narrative* Endoscopy (Routine) - Authorized Specialty Diagnoses / Procedures Referred By Contac t Referred To Contact Gastroenterology Diagnoses Colon cancer screening Procedures Colonoscopy Screening; Average Risk Patient IA COLONOSCOPY FLX DX W/COLLJ SPEC WHEN PFRMD IA COLORECTAL CANCER SCREENING; COLONOSCOPY ON INDIVIDUAL NOT MEETING CRITERIA FOR HIGH RISK IA COLORECTAL CANCER SCREENING; COLONOSCOPY ON INDIVIDUAL AT HIGH RISK IA COLONOSCOPY W/BIOPSY SINGLE/MULTIPLE IA COLSC FLX W/RMVL OF TUMOR POLYP LESION SNARE TQ IA COLSC FLX W/REMOVAL LESION BY HOT BX FORCEPS Poornima Prater, DO [address] [facility] [address] [place] [address] Phone: tel: fax: Referral ID Status Reason Start Date Expiration Date V isits Requested Visits Authorized [id number] Authorized 09/27/2024 09/27/2025 1 1 [facility] Work Phone: Summary Purpose Family History No Family History Records FoundNo Family History Records FoundNo Family History Records FoundNo Family History Records FoundNo Family History Records FoundNo Family History Records FoundNo Family History Records Found Advance Directives No Advanced Directives Records FoundDocuments on File Type Date Recorded Patient [place] Reporter Expl anation Advance Directives and Living Will History of Present Illness * Je Ni MD - 04/30/2020 6:32 PM EDT Dictation on: 04/30/2020 6:34 PM by: JE NI [[id number]] documented in this encounter Assessments Diagnosis Closed dislocation of interphalangeal joint of right little finger- Primary Chief Complaint and Reason for Visit Chief Complaint TOBACCO USE Additional Source Comments (unrecognized sect ion and content) No Status Records FoundNo Status Records FoundNo Status Records FoundNo Status Records FoundNo Status Records FoundNo Status Records FoundNo Status Records Found INFORMATION SOURCE (unrecogn ized section and content) DATE CREATED AUTHOR 01/06/2018 [facility] DATE CREATED AUTHOR AUTHOR'S ORGANIZ ATION 05/04/2020 [facility] DATE CREATED AUTHOR AUTHOR'S ORGANIZ ATION [facility]/2021 [facility] [facility] DATE CREATED AUTHOR AUTHOR'S ORGANIZ ATION 03/11/2022 [facility] DATE CREATED AUTHOR AUTHOR'S ORGANIZ ATION 11/06/2023 [facility] DATE CREATED AUTHOR AUTHOR'S ORGANIZ ATION 11/11/2024 [facility] DATE CREATED AUTHOR AUTHOR'S CHRISTINA KWON 11/23/2024 [facility] [place] Reason for Visit (unrecogniz ed section and content) Reason Comments Injury Reason Comments Blurred Vision Both Eyes Distance blur Reason Comments Abdominal Pain RLQ abdominal pain o nset 30 mins ago. BM last week + bright red blood. Passing gas. <item><item><item> Privacy Markings (unrecogniz ed section and content) Section Author: Lizett Hidalgo PROHIBITION ON REDISCLOSURE OF CONFIDENTIAL INFORMATION This notice accompanies a disclosure of information concerning a client made to you with the consent of such client. Section Author: Lizett Hidalgo PROHIBITION ON REDISCLOSURE OF CONFIDENTIAL INFORMATION This notice accompanies a disclosure of information concerning a client made to you with the consent of such client. Section Author: Lizett Hidalgo PROHIBITION ON REDISCLOSURE OF CONFIDENTIAL INFORMATION This notice accompanies a disclosure of information concerning a client made to you with the consent of such client. Source Comments (unrecognize d section and content) In the event this informatio n is protected by the Federal Confidentiality of Alcohol and Drug Abuse Patient Records regulations: The Federal rules restrict any use of the information to criminally investigate or prosecute any alcohol or drug abuse patient.[facility] Care Teams (unrecognized sec tion and content) [employer] Relationship Specialty Start [place] [address] PCP - General Family Medicine 08/25/22 Team Status: Active Member Role Status Dates Dr. Racheal Nolan Primary Care Provider Active Team Status: Inactive Member Role Status Dates Chip PFEIFFER, LEAD MILITARY ANALYST-C Attending Provider, Referring Pro vider Active Dr. Racheal Nolan Primary Care Provider Active [employer] Relationship Specialty Start Date End Date Radhika Yates MD [address] [place] [id number] PCP - General 07/19/18 Team Status: Active Member Role Status Dates Valentina PFEIFFER, LEAD MILITARY ANALYST-C Primary Care Provider Activ e Team Status: Inactive Member Role Status Dates Valentina PFEIFFER, LEAD MILITARY ANALYST-C Primary Care Provider Activ e Start: September 13, 2024 End: September 13, 2024 Valentina PFEIFFER, LEAD MILITARY ANALYST-C Attending Provider Active Start: September 13, 2024 End: September 13, 2024 [employer] Relationship Specialty Start Date End Date Bree Johnsonrosita PCP - General 10/31/24 Goals (unrecognized section and content) Goals may be documented in a n alternate sectionGoals may be documented in an alternate section FOR RECORDS PERTAINING TO PATIENTS WHO ARE OR HAVE BEEN ENROLLED IN A CHEMICAL DEPENDENCY/SUBSTANCEABUSE PROGRAM, SOME INFORMATION MAY BE OMITTED. This clinical summary was aggregated from multiple sources. Caution should be exercised in using it in the provision of clinical care. This summary normalizes information from multiple sources, and as a consequence, information in this document may materially change the coding, format and clinical context of patient data. In addition, data may be omitted in some cases. CLINICAL DECISIONS SHOULD BE BASED ON THE PRIMARY CLINICAL RECORDS. [email or web address] [email or web address]. provides no warranty or guarantee of the accuracy or completeness of information in this document.
== END | disposition home or self-care (01) ==
LOC: CT 13:24
PROVIDERS: PCP Nurse Practitioner Family; Referring Provider Nurse Practitioner Family; Visit Provider Nurse Practitioner Family
DX: Z12.2 Encounter for screening for malignant neoplasm of respiratory organs (principal); F17.210 Nicotine dependence, cigarettes, uncomplicated
CPT/HCPCS: 71271